=== PATIENT | female | born 1940 | race Caucasian/White ===

== ENCOUNTER 2019-06-12 14:47 | Inpatient (IN) | payer MEDICARE, OTHER ==
--- NOTE | 2019-06-12 15:49 | ED ---
Neurological HPI - HPI Summary HPI Summary: This patient is a 79 year old F [facility] by daughter with a chief complaint of falling down since couple days ago. Pt fell four times yesterdays. Patient reports dizziness and stumbling. Pt has not had any change in medication. Pt has no PMHx of a fib. Pt has PMHx of lymphedema, lung and breast cancer. Pt reports currently feeling okay. - History of Current Complaint Chief Complaint: EDFall Stated Complaint: ALC / FALLS PER EMS Time Seen by Provider: 06/12/19 14:58 Hx Obtained From: Patient Onset/Duration: Started days ago, Resolved Timing: Intermittent Episodes Lasting: Onset Severity: Moderate Current Severity: Moderate Pain Intensity: 6 Pain Scale Used: 0-10 Numeric Character: Room Spinning, Dizzy, Impaired Speech Aggravating: Nothing Alleviating: Nothing Associated Signs and Symptoms: Positive: Unsteady Gait, Dizziness, Impaired Speech - Allergy/Home Medications Allergies/Adverse Reactions: Allergies Allergy/AdvReac Type Severity Reaction Status Date / Time No Known Allergies Allergy Verified 06/12/19 15:03 Home Medications: Home Medications Oxycodone HCl [Roxicodone] 15 mg PO QID 06/12/19 [History Confirmed 06/12/19] Venlafaxine CAP (NF) [Effexor CAP (NF)] 75 mg PO DAILY 06/12/19 [History Confirmed 06/12/19] PMH/Surg Hx/FS Hx/Imm Hx Cardiovascular History: Reports: Hx Myocardial Infarction Respiratory History: Reports: Hx Lung Cancer Musculoskeletal History: Reports: Hx Back Problems Sensory History: Denies: Hx Deafness - Cancer History Cancer Type, Location and Year: Lung Cancer, Breast Cancer - Surgical History Surgery Procedure, Year, and Place: Lymphadenectomy Infectious Disease History: No Infectious Disease History: Denies: Traveled Outside the [place] in Last 30 Days - Family History Known Family History: Negative: Other - FHx of [place] - Social History Alcohol Use: Rare Substance Use Type: Reports: None Hx Tobacco Use: Yes Smoking Status (MU): Former Smoker Review of Systems Negative: Fever Positive: Other - tachycardic Neurological: Other - pos - dizziness, impaired gait Positive: Slurred Speech All Other Systems Reviewed And Are Negative: Yes Physical Exam - Summary Physical Exam Summary: Appearance: The patient is well-nourished in no acute distress and in no acute pain. Skin: The skin is warm and dry, and skin color reflects adequate perfusion. HEENT: The head is normocephalic and atraumatic. The pupils are equal and reactive. The conjunctivae are clear and without drainage. Nares are patent and without drainage. Mouth reveals moist mucous membranes, and the throat is without erythema and exudate. The external ears are intact. The ear canals are patent and without drainage. The tympanic membranes are intact. Neck: The neck is supple with full range of motion and non-tender. There are no carotid bruits. There is no neck vein distension. Respiratory: Chest is non-tender. Lungs are clear to auscultation and breath sounds are symmetrical and equal. Cardiovascular:There is no murmur or rub auscultated. There is no peripheral edema and pulses are symmetrical and equal. Tachycardic and irregularly irregular. Abdomen: The abdomen is soft and non-tender. There are normal bowel sounds heard in all four quadrants and there is no organomegaly palpated. Musculoskeletal: There is no back tenderness noted. Extremities are non-tender with full range of motion. There is good capillary refill. There is no peripheral edema or calf tenderness elicited. Neurological: Patient is alert and oriented to person, place and time. The patient has symmetrical motor strength in all four extremities. Cranial nerves are grossly intact. Deep tendon reflexes are symmetrical and equal in all four extremities. Psychiatric: The patient has an appropriate affect and does not exhibit any anxiety or depression. Triage Information Reviewed: Yes Vital Signs On Initial Exam: Initial Vitals Temp Pulse Resp BP Pulse Ox 98.2 F 109 16 119/87 99 06/12/19 14:50 06/12/19 14:50 06/12/19 14:50 06/12/19 14:50 06/12/19 14:50 Vital Signs Reviewed: Yes Diagnostics - Vital Signs Vital Signs Temp Pulse Resp BP Pulse Ox 06/12/19 14:50 98.2 F 109 16 119/87 99 - Laboratory Result Diagrams: 06/13/19 06:07 06/13/19 06:07 Lab Statement: Any lab studies that have been ordered have been reviewed, and results considered in the medical decision making process. - EKG 15:49 EKG Rhythm: Atrial Fibrillation Summary of EKG Findings: An EKG at 15:49 reveals atrial fibrillation 118 bpm, with IVR. Re-Evaluation - Re-Evaluation First Eval Re-Evaluation Time: 18:39 Comment: Discussed plan of care Course/Dx - Course Course Of Treatment: Ms. Cali presented with a complaint of falling down frequently over the last several days. On arrival she was noted to be in atrial fibrillation with RVR. She was kept on the monitor while labs were obtained. She had no focal finding on her neuro exam. I consulted Dr. Ortega for the new onset atrial fibrillation and she requested that I try to slow her with a beta ko and see if she was still dizzy. 2 doses of metoprolol kept her rate below 100 and we ambulated her at that time. She was very unsteady on her feet and I consult to the hospitalist again. Dr. Bhagat agreed to evaluate the patient. - Diagnoses Provider Diagnoses: Atrial fibrillation with RVR - Physician Notifications Discussed Care Of Patient With: Valentin Bhagat Time Discussed With Above Provider: 18:51 Instructed by Provider To: Other - Discussed case with Dr. Bhagat, who accepts pt for admission - Critical Care Time Critical Care Time: 30-74 min Discharge ED - Sign-Out/Discharge Documenting (check all that apply): Patient Departure - Admit Patient Received Moderate/Deep Sedation with Procedure: No - Discharge Plan Condition: Stable Disposition: ADMITTED TO [facility] - Billing Disposition and Condition Condition: STABLE Disposition: Admitted to [facility] - Attestation Statements Document Initiated by Larissa: Yes Documenting Scribe: Gely Nascimento Provider For Whom Larissa is Documenting (Include Credential): Jaison Garcia MD Scribe Attestation: Gely Summers, scribed for Jaison Garcia MD on 06/13/19 at 0740. Scribe Documentation Reviewed: Yes Provider Attestation: The documentation as recorded by the Gely hernandez accurately reflects the service I personally performed and the decisions made by me, Jaison Garcia MD Status of Scribe Document: Viewed
[2019-06-12] MEDS ORDERED: Metoprolol Tartrate IV* 1 MG/ML 5 ML VIAL IV ONE ×2 (16:22→17:43)
[2019-06-12 16:30] LABS: ABS Lymphocytes 1.1 10^3/ul (1.0-4.8); ABS Monocytes 0.9 10^3/ul (0-0.8); ABS Neutrophils 10.3 10^3/ul (1.5-7.7); Eosinophil % 0.2 %; Hematocrit 41 % (35-47); Hemoglobin 13.9 g/dL (12.0-16.0); Lymphocyte % 8.6 %; Mean Corpuscular HGB Conc 34 g/dL (31-36); Mean Corpuscular Hemoglobin 31 pg (27-31); Mean Corpuscular Volume 92 fL (80-97); Mean Platelet Volume 7.9 fL (7.4-10.4); Nucleated Red Blood Cells % 0.1; Platelet Count 245 10^3/uL (150-450); Red Blood Count 4.44 10^6 /uL (3.70-4.87); Red Cell Distribution Width 14 % (10-15); White Blood Count 12.3 10^3/uL (3.5-10.8)
[2019-06-12 16:37] LABS: INR 1.2 (0.82-1.09)
[2019-06-12 16:57] LABS: Anion Gap 11 mmol/L (2-11); CO2 Carbon Dioxide 27 mmol/L (22-32); Calcium 8.9 mg/dL (8.6-10.3); Chloride 102 mmol/L (101-111); Magnesium 1.5 mg/dL (1.9-2.7); Sodium 140 mmol/L (135-145)
[2019-06-12 17:02] LABS: Urine Appearance Cloudy; Urine Bacteria Absent (Absent); Urine Bilirubin Negative (Negative); Urine Blood 1+ (Negative); Urine Color Yellow; Urine Glucose Negative (Negative); Urine Ketones Negative (Negative); Urine Nitrite Negative (Negative); Urine Protein Negative (Negative); Urine Red Blood Cell Trace(0-2/hpf) (Absent); Urine Specific Gravity 1.005 (1.010-1.030); Urine Squamous Epithelial Cell Present (Absent); Urine Urobilinogen Negative (Negative); Urine White Blood Cell Trace(0-5/hpf) (Absent)
[2019-06-12 17:03] LABS: ALT 7 U/L (7-52); AST 16 U/L (13-39); Albumin/Globulin Ratio 1.5 (1-3); Alkaline Phosphatase 88 U/L (34-104); BUN/Creatinine Ratio 7.2 (8-20); Blood Urea Nitrogen 5 mg/dL (6-24); EGFR African American 99.3 (>60); EGFR Non-African American 82.1 (>60); Globulin 2.7 g/dL (2-4); Glucose 95 mg/dL (70-100); Total Protein 6.7 g/dL (6.4-8.9); Troponin I 0.01 ng/mL (<0.04)
[2019-06-12] MEDS ORDERED: Magnesium Sulfate 1 GM IV* 1 GM/100 ML BAG IV ONE (18:58)
[2019-06-12] MEDS: Potassium Chlor TAB* 20 MEQ TAB.ER PO SCH ×2 (19:35→20:59)
[2019-06-12 21:47] LABS: Alcohol < 10 mg/dL (<10)
--- NOTE | 2019-06-12 22:57 | ADMNOTE ---
Subjective Date of Service: 06/12/19 Interval History: 79 year old female with medical history of chronic back pain and osteoporosis was brought in by EMS for frequent falls, ataxic gait and altered mental status. Pt recently moved from [facility] 1 month ago and has been living with her daughter. Symptoms started 48 hrs prior to presenting to the ER. Spoke with daughter who says that patient has had slurred speech, difficulty with ambulating, wobbling, holding onto garza. She suffered multiple falls as a result. Her mentation has also been off. At baseline, she is sharp, self sufficient and able to ambulate on her own. In the ED, EKG showed A fib, no previous hx. Pt denies any symptoms related to A -fib. She is not able to offer same history as daughter. Continuously ataxic, not able to walk 1 step without falling. Review of Systems - Measurements Intake and Output: Intake and Output Last 24 Hours 06/10/19 06/11/19 06/12/19 06/13/19 06:59 06:59 06:59 06:59 Intake Total 100 Balance 100 Weight 135 lb Intake: IV Fluids 100 - Review of Systems Constitutional Symptoms: Negative: Weight Gain, Weight Loss, Weakness, Fatigue, Fever, Night Sweats, Unexplained Falls, Other Dermatology: Negative: Normal, Rash, Skin Lesions, Cancer, Skin Lumps, Other HEENT: Negative: Normal, Change in Hearing, Vertigo, Dental Problems, Tinnitus, Sinus Problem, Other Eyes: Negative: Normal, Change in Vision, Double Vision, Eye Pain, Glaucoma, Cataract, Contacts or Glasses, Other Thyroid: Positive: Normal Pulmonary: Positive: Normal Negative: Cough, Sputum, Hemoptysis, Wheezing, Respiratory Distress, Shortness of Breath, COPD, Asthma, Exercise Intolerance, Home Oxygen, Other Cardiology: Positive: Normal Negative: Chest Pain, Shortness of Breath, Palpitations, Swelling of Ankles, Peripheral Vascular Dis, Edema, Faintness, Syncope, Claudication, Proximal NocturnalDyspnea, Orthopnoea, Other Gastroenterology: Positive: Normal Negative: Abdominal Pain, Nausea, Vomiting, Anorexia, Indigestion, Difficulty Swallowing, Heartburn, Constipation, Diarrhea, Blood in Stools, Change in Bowel Habits, Haematemesis, Melena, Other Genital - Urinary: Positive: Normal Genitourinay - Female: Positive: Menopause Musculoskeletal: Positive: Osteoporosis, Low Back Pain Endocrinology: Positive: Normal Neurology: Positive: Change in Balancing, Change in Coordination, Change in Walking Psychiatry: Positive: Normal Objective Active Medications: Cyanocobalamin (Vitamin B12 Tab*) 500 mcg PO DAILY [facility] Docusate Sodium (Colace Cap*) 100 mg PO BID [facility] Heparin Sodium (Porcine) (Heparin Vial(*)) 5,000 units SUBCUT Q8HR [facility] Oxycodone HCl (Roxycodone Tab*) 15 mg PO QID [facility] Potassium Chloride (Klor Con Er Tab*) 20 meq PO Q2H [facility] Stop: 06/12/19 23:59 Last Admin: 06/12/19 20:59 Dose: 20 meq Thiamine HCl (Vitamin B-1 Tab*) 100 mg PO DAILY [facility] Venlafaxine HCl (Effexor Cap (Nf)) 75 mg PO DAILY [facility]; Protocol Vital Signs - 8 hr 06/12/19 06/12/19 06/12/19 14:50 15:11 15:13 Temperature 98.2 F Pulse Rate 109 133 135 Respiratory 16 20 17 Rate Blood Pressure 119/87 98/76 (mmHg) O2 Sat by Pulse 99 96 94 Oximetry 06/12/19 06/12/19 06/12/19 15:15 15:42 16:00 Temperature Pulse Rate 127 127 111 Respiratory 24 19 14 Rate Blood Pressure 117/89 111/94 (mmHg) O2 Sat by Pulse 85 91 96 Oximetry 06/12/19 06/12/19 06/12/19 16:44 16:46 17:00 Temperature Pulse Rate Respiratory 24 17 16 Rate Blood Pressure 138/101 115/86 (mmHg) O2 Sat by Pulse Oximetry 06/12/19 06/12/19 06/12/19 17:12 17:42 18:00 Temperature Pulse Rate 110 Respiratory 24 20 13 Rate Blood Pressure 117/79 125/71 (mmHg) O2 Sat by Pulse 88 Oximetry 06/12/19 06/12/19 18:12 18:49 Temperature Pulse Rate 102 Respiratory 18 19 Rate Blood Pressure 117/43 122/79 (mmHg) O2 Sat by Pulse 87 Oximetry Oxygen Devices in Use Now: None Eyes: No Scleral Icterus, PERRLA Neck: NL Appearance and Movements; NL JVP Respiratory: Symmetrical Chest Expansion and Respiratory Effort, Clear to Auscultation, Clear to Percussion Cardiovascular: NL Sounds; No Murmurs; No JVD Abdominal: NL Sounds; No Tenderness; No Distention Lymphatic: No Cervical Adenopathy Skin: No Rash or Ulcers Neurological: Alert and Oriented x 3, NL Muscle Strength and Tone, - - ataxia Nutrition: Taking PO's Result Diagrams: 06/13/19 06:07 06/12/19 16:20 Assess/Plan/Problems-Billing Assessment: - Patient Problems (1) Ataxia Current Visit: Yes Status: Acute Onset Date: ~06/10/19 Code(s): R27.0 - ATAXIA, UNSPECIFIED SNOMED Code(s): 17571107 Comment: new onset ataxia. At baseline, she is able to ambulate on her own. Now needs assist to stand CT head with no obvious evidence of bleed, waiting for official read. Needs MRI for more information if CT is negative. neg EtOH. Starting her on thiamine and B12 lipid panel pending, echo pending, hemogoblin A1C pending (2) Atrial fibrillation Current Visit: Yes Status: Acute Code(s): I48.91 - UNSPECIFIED ATRIAL FIBRILLATION SNOMED Code(s): 07316367 Comment: unknown onset. Rates have been 100-120s. Received metoprolol in the ED. she is at high risk for stroke. Still not sure if she actually suffered a posterior stroke or not. I think she needs to be ruled out before starting on AC. starting metoprolol 25 mg BID for rate control (3) Altered mental status Current Visit: Yes Status: Acute Onset Date: 06/10/19 Code(s): R41.82 - ALTERED MENTAL STATUS, UNSPECIFIED SNOMED Code(s): 724479121 Comment: "odd" behavior reported by family, possible hallucinations with confusion. She is a chronic opioid user but family reported no drowsiness. She is very alert but "off". Patient was alert and oriented x 4 by the time i examined her. (4) Chronic back pain Current Visit: Yes Status: Chronic Code(s): M54.9 - DORSALGIA, UNSPECIFIED; G89.29 - OTHER CHRONIC PAIN SNOMED Code(s): 158433021 Comment: family reported hx of osteoporosis and chronic fractures for which she takes oxycontin 15 mg 4x daily and has been for many years. (5) Osteoporosis Current Visit: Yes Status: Chronic Code(s): M81.0 - AGE-RELATED OSTEOPOROSIS W/O CURRENT PATHOLOGICAL FRACTURE SNOMED Code(s): 08370276 Comment: not on any treatment takes opiates and effexor for pain control (6) History of myocardial infarction Current Visit: Yes Status: Chronic Code(s): I25.2 - OLD MYOCARDIAL INFARCTION SNOMED Code(s): 466619532 Comment: not on any medications at home Does not have a PCP yet as she recently moved from [place].
[2019-06-13] MEDS: Heparin VIAL(*) 5000 UNITS/ML VIAL (FIVE THOUSAND) SUBCUT SCH ×4 (00:16→20:49)
[2019-06-13] MEDS: Potassium Chlor TAB* 20 MEQ TAB.ER PO SCH (00:17)
[2019-06-13] MEDS: oxyCODONE TAB* 5 MG TAB PO SCH ×3 (00:22→14:58)
[2019-06-13 06:18] LABS: ABS Basophils 0.1 10^3/ul (0-0.2); ABS Monocytes 0.8 10^3/ul (0-0.8); ABS Neutrophils 8.7 10^3/ul (1.5-7.7); Eosinophil % 0.3 %; Hematocrit 38 % (35-47); Hemoglobin 13.2 g/dL (12.0-16.0); Lymphocyte % 9.6 %; Mean Corpuscular HGB Conc 34 g/dL (31-36); Mean Corpuscular Hemoglobin 32 pg (27-31); Mean Corpuscular Volume 93 fL (80-97); Mean Platelet Volume 8.2 fL (7.4-10.4); Platelet Count 212 10^3/uL (150-450); Red Blood Count 4.13 10^6 /uL (3.70-4.87); Red Cell Distribution Width 14 % (10-15); White Blood Count 10.6 10^3/uL (3.5-10.8)
[2019-06-13 06:39] LABS: Albumin 3.9 g/dL (3.2-5.2); Albumin/Globulin Ratio 1.4 (1-3); BUN/Creatinine Ratio 12.5 (8-20); Calcium 8.9 mg/dL (8.6-10.3); EGFR African American 126.4 (>60); EGFR Non-African American 104.4 (>60); Globulin 2.8 g/dL (2-4); HDL Cholesterol 58.6 mg/dL; Potassium 3.5 mmol/L (3.5-5.0); Total Protein 6.7 g/dL (6.4-8.9)
[2019-06-13] MEDS: Docusate CAP* 100 MG PO SCH ×2 (08:57→20:43)
[2019-06-13] MEDS: Cyanocobalamin TAB* 500 MCG PO SCH (08:57)
[2019-06-13] MEDS: Metoprolol Tartrate TAB* 25 MG PO SCH ×2 (08:57→20:43)
[2019-06-13] MEDS: Thiamine TAB* 100 MG TAB PO SCH (08:57)
[2019-06-13] MEDS: CMCS: Venlafaxine TAB (NF) 25 MG TAB PO SCH (08:58)
[2019-06-13 11:17] LABS: Magnesium 1.8 mg/dL (1.9-2.7)
--- NOTE | 2019-06-13 11:53 | ECHO ---
*[facility]* [place] [address] Fax #: [phone] Transthoracic Echocardiogram Patient: Ligia Cali : 1940 Study Date: 06/13/2019 Age: 79 Gender: F HR: 117 bpm Height: 63 in /160 cm BSA: 1.56 m^2 Weight: 119.8 lb /54.4 kg BMI: 21.3 kg/m^2 *Notereader: * Tyra Mckeon [facility] *Referring Physician: * Sugey Ibarra *Reading Physician: * Lamont Hull MD Indications: Atrial Fibrillation. History: PMH: Myocardial infarction. Lymphedema. Breast Cancer. Lung Cancer. Risk factors: Former tobacco use. Conclusions Summary: - Left ventricle: Systolic function is at the lower limits of normal. The estimated ejection fraction is 50-55%. Wall motion is normal; there are no regional wall motion abnormalities. - Right ventricle: Systolic function is normal. Systolic pressure is mildly to moderately increased. - Left atrium: The atrium is severely dilated. - Mitral valve: The findings are consistent with mild stenosis. There is moderate regurgitation. - Aortic valve: There is no evidence of stenosis. There is trace regurgitation. - Tricuspid valve: There is moderate regurgitation. - Ascending aorta: The ascending aorta is appears normal. - Pericardium, extracardiac: The amount of pericardial fluid appears to be at the upper limits of normal. - Study data: No prior study is available for comparison. Study data: Transthoracic echocardiogram. Procedure: Transthoracic echocardiography was performed. Image quality was good. Complete 2D, spectral Doppler, and color flow Doppler. Location: Bedside. Patient status: Inpatient. Patient room number: 448-2. No prior study is available for comparison. Rhythm: Atrial fibrillation. Findings Left ventricle: The cavity size is below normal. Wall thickness is normal. Systolic function is at the lower limits of normal. The estimated ejection fraction is 50-55%. Wall motion is normal; there are no regional wall motion abnormalities. Left ventricular diastolic function parameters are indeterminate. Right ventricle: The cavity size is normal. Wall thickness is mildly increased. Systolic function is normal. Systolic pressure is mildly to moderately increased. Left atrium: The atrium is severely dilated. Right atrium: The atrium is moderately to severely dilated. Mitral valve: The Mitral valve annulus appears mildly calcified. The findings are consistent with mild stenosis. There is moderate regurgitation. Aortic valve: The valve is trileaflet. The leaflets are mildly thickened. There is no evidence of stenosis. There is trace regurgitation. Tricuspid valve: The leaflets are normal thickness. There is no evidence of stenosis. There is moderate regurgitation. Pulmonic valve: The leaflets are normal thickness. There is no evidence of stenosis. There is trace regurgitation. Aorta: Ascending aorta: The ascending aorta is appears normal. The aortic root appears normal. The aortic arch appears normal. Pericardium: The amount of pericardial fluid appears to be at the upper limits of normal. Pulmonary arteries: The main pulmonary artery is normal-sized. Systolic pressure is mildly to moderately increased. Systemic veins: Inferior vena cava: The vessel is normal in size. There is (>= 50%) respiratory change in the IVC dimension. Measurements Left ventricle Value Ref Aortic valve continued Value Ref WAYNE, LAX (L) 3.5 cm 3.8 - 5.2 VTI, S 19.6 cm ----- ESD, LAX 2.4 cm 2.2 - 3.5 Mean grad, S 3.0 mm Hg ----- FS, LAX 31 % - 45 Peak grad, S 5.0 mm Hg ----- PW, ED, LAX 0.9 cm 0.6 - 0.9 LVOT/AV, VTI ratio 0.51 ----- FS 31 % - 45 PW, ED 0.9 cm 0.6 - 0.9 Mitral valve Value Ref E', lat tatyana, TDI (L) 8.6 cm/sec >=10.0 Peak E 1.02 m/sec - ---- E/e', lat tatyana, 12 Peak A 0 m/sec ---- - TDI Decel time 152 ms ----- E', med tatyana, TDI 8.5 cm/sec >=7.0 Peak grad, D 4.2 mm Hg - ---- E/e', med tatyana, 12 MR PISA radius 0.5 cm ---- - TDI Max MR v 5.37 m/sec ----- E', avg, TDI 8.6 cm/sec Regurg VTI 136.0 cm ---- - E/e', avg, TDI 12 <=14 ERO, PISA 0.09 cm^2 - ---- MR vol, PISA 13 ml ----- LVOT Value Ref Peak arelis, S 0.55 m/sec Pulmonic valve Value Ref VTI, S 10.0 cm Peak v, S 0.97 m/sec ----- Mean grad, S 1 mm Hg Peak grad, S 4.0 mm Hg ----- PA v, ED 1.44 m/sec ----- Ventricular septum Value Ref PA grad, ED 8 mm Hg ----- IVS, ED 0.9 cm 0.6 - 0.9 Tricuspid valve Value Ref Right ventricle Value Ref TR peak v (H) 3.1 m/sec <=2.8 AW thickness, ED (H) 0.7 cm 0.1 - 0.5 Peak RV-RA grad, S 38 mm Hg ----- WAYNE, LAX 2.7 cm WAYNE minor ax, A4C 3.3 cm 1.9 - 3.5 Aortic root Value Ref mid Root diam 2.8 cm <3.8 Pressure, S 41 mm Hg Ascending aorta Value Ref Left atrium Value Ref AAo AP diam, S 3.0 cm ----- AP dim, ES (H) 4.40 cm 2.70 - 3.80 Aortic arch Value Ref ML dim, A4C 4.4 cm Arch diam 2.2 cm ----- SI dim, A4C 6.0 cm Vol/bsa, ES, 1-p (H) 48 ml/m^2 11 - 40 Decending aorta Value Ref A4C Rio peak arelis 0.56 m/sec ----- Vol/bsa, ES, A/L (H) 59 ml/m^2 16 - 34 Pulmonary artery Value Ref Right atrium Value Ref Pressure, S 37.0 mm Hg ----- SI dim, ES (H) 6.1 cm 3.4 - 5.3 ML dim, ES, A4C 4.3 cm 2.6 - 4.4 Inferior vena cava Value Ref SI dim, ES, A4C (H) 6.1 cm 3.4 - 5.3 Diam 2.0 cm ----- Estimated RAP 3 mm Hg Aortic valve Value Ref Tatyana diam, ED 1.5 cm Peak v, S 1.14 m/sec Legend: (L) and (H) vijay values outside specified reference range. Prepared and electronically signed by Lamont Hull MD 06/13/2019 11:53
[2019-06-13] MEDS ORDERED: Magnesium Sulfate 1 GM IV* 1 GM/100 ML BAG IV ONE (12:37)
--- NOTE | 2019-06-13 14:19 | PN ---
Subjective Date of Service: 06/13/19 Interval History: Patient seen and examined. Patient states she is feeling much better than at admission, however, she is becoming sleepy during exam and requires frequent reminders to stay awake for assessment and discussion. She rates her back pain as 4/10 but denies any other acute complaints. She has not ambulated. Denies dizziness, no SOB, no chest pain, no fevers or chills. Objective Active Medications: Cyanocobalamin (Vitamin B12 Tab*) 500 mcg PO DAILY [facility] Last Admin: 06/13/19 08:57 Dose: 500 mcg Docusate Sodium (Colace Cap*) 100 mg PO BID [facility] Last Admin: 06/13/19 08:57 Dose: 100 mg Heparin Sodium (Porcine) (Heparin Vial(*)) 5,000 units SUBCUT Q8HR [facility] Last Admin: 06/13/19 06:06 Dose: 5,000 units Metoprolol Tartrate (Lopressor Tab*) 25 mg PO BID [facility] Last Admin: 06/13/19 08:57 Dose: 25 mg Oxycodone HCl (Roxycodone Tab*) 10 mg PO Q6HR [facility] Thiamine HCl (Vitamin B-1 Tab*) 100 mg PO DAILY [facility] Last Admin: 06/13/19 08:57 Dose: 100 mg Venlafaxine HCl (Effexor Tab (Nf)) 75 mg PO DAILY [facility]; Protocol Last Admin: 06/13/19 08:58 Dose: 75 mg Vital Signs - 8 hr 06/13/19 06/13/19 06/13/19 07:32 08:00 08:57 Temperature 97.9 F Pulse Rate 102 Respiratory 20 20 16 Rate Blood Pressure 124/69 (mmHg) O2 Sat by Pulse 97 Oximetry 06/13/19 06/13/19 11:44 12:34 Temperature 98.1 F Pulse Rate 94 Respiratory 20 20 Rate Blood Pressure 109/61 (mmHg) O2 Sat by Pulse 92 Oximetry Oxygen Devices in Use Now: None Appearance: drowsy, NAD Eyes: No Scleral Icterus, PERRLA Ears/Nose/Mouth/Throat: Mucous Membranes Moist Neck: NL Appearance and Movements; NL JVP, Trachea Midline Respiratory: Symmetrical Chest Expansion and Respiratory Effort, Clear to Auscultation Cardiovascular: NL Sounds; No Murmurs; No JVD, RRR Abdominal: NL Sounds; No Tenderness; No Distention Skin: No Rash or Ulcers Neurological: - - A&Ox3, appears drowsy Nutrition: Taking PO's Result Diagrams: 06/13/19 06:07 06/13/19 06:07 Diagnostic Imaging: Patient Name: GIANNA PONCE Medical Record#: [id number] Ordering Physician: Marta Pace ROD BUSTER Acct.#: [id number] : 1940 Age: 79 Sex: F Location: [address] [place], [place] [address] Exam Date: 06/13/19 1024 ADM Status: ADM IN Order Information: CT SPINE THORACIC W/O Accession Number: [id number] CPT: 30534 Indication: Back pain after fall CT of the thoracic spine was obtained in the axial plane. There is compression of the T9 vertebra. There is compression of T11, T12 and L1 with methacrylate in place likely representing chronic compression. Spinal canal is intact. Diffuse osteopenia is noted. At T9 there is no evidence of paravertebral soft tissue. IMPRESSION: Osteopenia is noted. At T9 there is decrease in height without evidence of edema likely representing chronic compression. Chronic compression is noted at T11, T12 and L1 with methacrylate kyphoplasty performed. Patient Name: GIANNA PONCE Medical Record#: [id number] Ordering Physician: Marta Pace ROD BUSTER Acct.#: [id number] : 1940 Age: 79 Sex: F Location: [address] [place], [place] [address] Exam Date: 06/13/19 1024 ADM Status: ADM IN Order Information: CT SPINE LUMBAR W/O Accession Number: [id number] CPT: 78660 Indication: Fall. CT of the lumbar spine was obtained in the axial plane. Sagittal and coronal reconstructed images were obtained The vertebral bodies appear normal in height. There is compression fracture of L1 and T12 with methacrylate presumably from prior compression. There is postoperative changes with laminectomy at L4. Multiple levels of degenerative disc disease. The sacrum and sacroiliac joints are unremarkable. IMPRESSION: Laminectomy at L4. No recent compression fracture impression L1 and T12. Patient Name: GIANNA PONCE Medical Record#: [id number] Ordering Physician: Sugey Ibarra MD Acct.#: [id number] : 1940 Age: 79 Sex: F Location: EMERGENCY DEPARTMENT Exam Date: 06/12/192050 ADM Status: REG ER Order Information: CT BRAIN WO Accession Number: [id number] CPT: 97464 EXAM: CT Head Without Contrast EXAM DATE/TIME: 06/12/2019 9:12 PM CLINICAL HISTORY: 79 years old, female; Other: Stroke like symptoms; Additional info: Rule out stroke TECHNIQUE: Imaging protocol: Computed tomography of the head without contrast. Radiation optimization: All CT scans at this facility use at least one of these dose optimization techniques: automated exposure control; mA and/or kV adjustment per patient size (includes targeted exams where dose is matched to clinical indication); or iterative reconstruction. COMPARISON: No relevant prior studies available. FINDINGS: Brain: There is minimal patchy low attenuation of deep white matter. Upper normal sulci. Ventricles: Upper normal ventricles. Bones/joints: Degenerative changes of the TMJs. Sinuses: Visualized sinuses are unremarkable. No fluid levels. Mastoid air cells: Visualized mastoid air cells are well aerated. Soft tissues: Unremarkable. IMPRESSION: 1. Minimal chronic ischemic white matter change. 2. Otherwise negative noncontrast head CT. To contact [facility] with a general question: Operations Center - [phone] For direct physician to physician contact: Physician Hotline - [phone] [facility] ([facility] Facility ID #[id number]) Assess/Plan/Problems-Billing Assessment: This is a 79 year old female with history of HTN, and compression fxs/chronic pain that presented to the ED with complaints of confusion and ataxia. - Patient Problems (1) Altered mental status Code(s): R41.82 - ALTERED MENTAL STATUS, UNSPECIFIED SNOMED Code(s): 932838720 Comment: - Brain CT negative as above - Narcotics held last night and this AM, per RN, patient was very alert this morning, and now is very drowsy after having oxycodone dose - Suspect polypharmacy, given advanced age, do not think the amount of narcotic she is on is appropriate at this time - [place] prescription monitoring program checked, patient is prescribed 120 tablets of 15mg oxycodone every 30 days and appears to be taking them as prescribed. No prescriptions in [place] filled. - Decrease oxycodone to 10mg Q6h while awake only, judging by patient's somnolence this morning with 15mg dose, she does not appear to be tolerating her normal dose - Monitor for withdrawl, neuro checks Q6h (2) Ataxia Code(s): R27.0 - ATAXIA, UNSPECIFIED SNOMED Code(s): 69321705 Comment: - CT thoracic and lumbar without contrast as above, no new compression fractures/pathology noted - Does have kyphoplasty at T9, 10, 11 and chronic spinal disease and osteopenia - Currently neurologically intact with no myelopathy noted, suspect decreased cerebral perfusion in setting of new onset afib with RVR in combination with narcotics. - PT/OT evaluations pending - Follow labs, continue neuro checks - Patient is not exhibiting any symptoms of embolic event involving posterior circulation, no visual field cuts, no sensory loss, no visual-cognitive dysfunction, no unilateral weakness. Do not feel that patient's presentation is consistent with CVA. (3) Atrial fibrillation Code(s): I48.91 - UNSPECIFIED ATRIAL FIBRILLATION SNOMED Code(s): 64640651 Comment: - Appears to be new onset - BB started for rate control - CHADsVASc Score is 5 or high risk for stroke, given that patient is exhibiting no neurologic deficits to suggest stroke, and since patient's AMS improved being off narcotics, would suggest starting eliquis tonight for persistent afib for stroke prevention (4) Chronic back pain SNOMED Code(s): 529667923 Comment: - Patient states history of spinal disease and compression fx since 2011 - CTs as above, no new fractures - Highly recommend decreasing narcotics and monitor for withdrawl symptoms, continue effexor - PT/OT (5) History of myocardial infarction Code(s): I25.2 - OLD MYOCARDIAL INFARCTION SNOMED Code(s): 523371648 Comment: - ECHO as above - No chest pain (6) DVT prophylaxis Code(s): Z29.9 - ENCOUNTER FOR PROPHYLACTIC MEASURES, UNSPECIFIED SNOMED Code( s): 010077002 Comment: - Currently on heparin, transition to eliquis (7) Full code status Code(s): Z78.9 - OTHER SPECIFIED HEALTH STATUS SNOMED Code(s): 538946453 Status and Disposition: Inpatient, dispo to home when stable
[2019-06-13] MEDS ORDERED: Iohexol 350* (CONTRAST) 500 ML MDV IV ONE (16:06)
[2019-06-14] MEDS: Acetaminophen TAB* 325 MG PO PRN ×2 (00:48→21:45)
[2019-06-14] MEDS: oxyCODONE TAB* 5 MG TAB PO SCH ×5 (01:29→17:28)
[2019-06-14] MEDS: Heparin VIAL(*) 5000 UNITS/ML VIAL (FIVE THOUSAND) SUBCUT SCH (06:54)
[2019-06-14] MEDS: Thiamine TAB* 100 MG TAB PO SCH (08:55)
[2019-06-14] MEDS: CMCS: Venlafaxine TAB (NF) 25 MG TAB PO SCH (08:55)
[2019-06-14] MEDS: Docusate CAP* 100 MG PO SCH ×2 (08:58→21:44)
[2019-06-14] MEDS: Cyanocobalamin TAB* 500 MCG PO SCH (08:59)
[2019-06-14] MEDS: Metoprolol Tartrate TAB* 25 MG PO SCH ×2 (09:01→21:44)
[2019-06-14] MEDS: Apixaban* 5 MG TAB PO SCH ×2 (12:52→21:45)
--- NOTE | 2019-06-14 14:48 | PN ---
Subjective Date of Service: 06/14/19 Interval History: Ms. Cali is feeling "lousy but better" today. She is having frequent back pain which is her baseline. She is surprised to hear she may have taken too many narcotics. She does not want us to take away her pain medications. She does feel comfortable going back home. Denies CP, SOB, N/V. No concerns from nursing. Family History: Unchanged from Admission Social History: Unchanged from Admission Past Medical History: Unchanged from Admission Objective Active Medications: Acetaminophen (Tylenol Tab*) 650 mg PO Q6H PRN PAIN Apixaban (Eliquis*) 5 mg PO BID [facility] Cyanocobalamin (Vitamin B12 Tab*) 500 mcg PO DAILY [facility] Docusate Sodium (Colace Cap*) 100 mg PO BID [facility] Metoprolol Tartrate (Lopressor Tab*) 37.5 mg PO BID [facility] Oxycodone HCl (Roxycodone Tab*) 10 mg PO Q6HR [facility] Thiamine HCl (Vitamin B-1 Tab*) 100 mg PO DAILY [facility] Venlafaxine HCl (Effexor Tab (Nf)) 75 mg PO DAILY [facility]; Protocol Vital Signs - 8 hr 06/14/19 06/14/19 06/14/19 07:15 08:00 11:15 Temperature 97.5 F 97.9 F Pulse Rate 83 105 Respiratory 19 19 18 Rate Blood Pressure 119/58 113/54 (mmHg) O2 Sat by Pulse 100 95 Oximetry Oxygen Devices in Use Now: None Appearance: Elderly female laying in bed in NAD Eyes: No Scleral Icterus Ears/Nose/Mouth/Throat: Mucous Membranes Moist Neck: NL Appearance and Movements; NL JVP, Trachea Midline Respiratory: Symmetrical Chest Expansion and Respiratory Effort, Clear to Auscultation Cardiovascular: NL Sounds; No Murmurs; No JVD, - - Irregular Abdominal: NL Sounds; No Tenderness; No Distention Extremities: No Edema Neurological: Alert and Oriented x 3 Lines/Tubes/Other Access: Clean, Dry and Intact Peripheral IV Nutrition: Taking PO's Result Diagrams: 06/13/19 06:07 06/13/19 06:07 Assess/Plan/Problems-Billing Assessment: Ms. Cali is a 79 year old F with PMH of HTN, and compression fractures with chronic pain; that presented to the ED with complaints of confusion and ataxia and was found to have new onset afib. - Patient Problems (1) Altered mental status Code(s): R41.82 - ALTERED MENTAL STATUS, UNSPECIFIED Comment: - Resolved with decrease of narcotic dosing, so suspect this was all medication- induced - Brain CT negative as above - CTA head/neck unremarkable - [place] prescription monitoring program checked: patient is prescribed 120 tablets of 15mg oxycodone every 30 days and appears to be taking them as prescribed; no prescriptions in [place] filled - Given advanced age, do not think the amount of narcotic she has been on is appropriate - Monitor for withdrawl and neuro checks q6h - Continue oxycodone at decrease dose of 10mg q6h (2) Ataxia Code(s): R27.0 - ATAXIA, UNSPECIFIED Comment: - Currently neurologically intact with no myelopathy noted - CT thoracic and lumbar without contrast as above, no new compression fractures /pathology noted - Kyphoplasty noted at T9, 10, 11 and chronic spinal disease and osteopenia - Suspect decreased cerebral perfusion in setting of new onset afib with RVR in combination with narcotics; no evidence of CVA (3) Atrial fibrillation Code(s): I48.91 - UNSPECIFIED ATRIAL FIBRILLATION Comment: - New onset - Mostly rate controlled; tele shows HR 90-110s - CHADsVASc Score is 5 - Increase metoprolol; start Eliquis (4) Chronic back pain Code(s): M54.9 - DORSALGIA, UNSPECIFIED; G89.29 - OTHER CHRONIC PAIN Comment: - Patient states history of spinal disease and compression fx since 2011 - CT unremarkable for new fractures - Continue oxycodone at decreased dose as above (5) DVT prophylaxis Code(s): Z29.9 - ENCOUNTER FOR PROPHYLACTIC MEASURES, UNSPECIFIED Comment: - Eliquis (6) Full code status Code(s): Z78.9 - OTHER SPECIFIED HEALTH STATUS Comment: Status and Disposition: Inpatient. Anticipate d/c home tomorrow. Attending: Kecia Easley
[2019-06-15] MEDS: Acetaminophen TAB* 325 MG PO PRN (03:33)
[2019-06-15] MEDS: oxyCODONE TAB* 5 MG TAB PO SCH ×3 (05:50→11:16)
[2019-06-15] MEDS: Docusate CAP* 100 MG PO SCH (08:33)
[2019-06-15] MEDS: Metoprolol Tartrate TAB* 25 MG PO SCH (08:33)
[2019-06-15] MEDS: Cyanocobalamin TAB* 500 MCG PO SCH (08:33)
[2019-06-15] MEDS: Apixaban* 5 MG TAB PO SCH (08:33)
[2019-06-15] MEDS: Thiamine TAB* 100 MG TAB PO SCH (08:33)
[2019-06-15] MEDS: CMCS: Venlafaxine TAB (NF) 25 MG TAB PO SCH (08:33)
[2019-06-15 12:39] VITALS: BP 109/47
--- NOTE | 2019-06-15 20:30 | DS ---
CC: [facility]* DISCHARGE SUMMARY: DATE OF ADMISSION: 06/12/19 DATE OF DISCHARGE: 06/15/19 PRIMARY CARE PROVIDER: [facility]. ATTENDING PHYSICIAN: Dr. Kecia Easley* (dictated by Lyn Vergara NP). PRIMARY DIAGNOSES: 1. Altered mental status, likely unintentional narcotic overdose. 2. Ataxia. 3. New-onset atrial fibrillation. SECONDARY DIAGNOSES: 1. Chronic back pain. 2. Chronic compression fractures. STUDIES WHILE IN THE HOSPITAL: 1. EKG on 06/12/19 shows atrial fibrillation with rate of 118, QTc 481. No ST changes. 2. Chest x-ray on 06/12/19 reads as chronic interstitial lung disease. Right upper lobe atelectasis is noted with right apical scarring. 3. Brain CT on 06/12/19 reads as minimal chronic ischemic white matter change. Otherwise, negative noncontrast head CT. 4. Transthoracic echocardiogram on 06/13/19 reads as the left ventricular systolic function is at the lower limits of normal. The estimated ejection fraction is 50% to 55%. Wall motion is normal and there are no regional wall motion abnormalities. Right ventricular systolic function is normal. Systolic pressure is mildly to moderately increased. The left atrium is severely dilated. Findings are consistent with mild mitral stenosis. There is moderate mitral regurgitation. There is no evidence of aortic stenosis. There is trace aortic regurgitation. There is moderate tricuspid regurgitation. The ascending aorta appears normal. The amount of pericardial fluid appears to be at the upper limits of normal. No prior study available for comparison. 5. Lumbar spine CT on 06/13/19 reads as laminectomy at L4. No recent compression fracture. Compression at L1 and T12. 6. Thoracic spine CT on 06/13/19 reads as osteopenia. At T9, there is decrease in height without evidence of edema, likely representing chronic compression. Chronic compression is noted at T11, T12, and L1 with methacrylate kyphoplasty performed. 7. Head CTA on 06/13/19 reads as calcific plaque is noted at the origin of the internal carotid arteries bilateral and the aortic bifurcation. This appears to be less than 50% stenosis. No evidence of carotid artery dissection is noted. Intracranial circulation demonstrates no branch occlusion or aneurysmal dilation. Vertebral arteries and basilar artery appear fairly symmetric with no vertebral artery dissection. Posterior cerebral arteries are unremarkable. HISTORY OF PRESENT ILLNESS AND HOSPITAL COURSE: Ms. Cali is a 79-year-old female with past medical history of hypertension, compression fractures, and chronic pain secondary to prior breast cancer who presented to the emergency room on 06/12/19 with complaints of falls and gait ataxia. Please see the history and physical by Dr. Ibarra for complete summary of the events leading up to this hospitalization. In short, the patient moved to the area from [place] approximately 1 month ago. Approximately 2 days prior to presenting to the emergency room, she was noted to have increasingly worse altered mental status and gait ataxia. The daughter noted slurred speech and multiple falls as a result of her ataxia and so brought her to the emergency room. In the emergency room, the patient was noted to have new-onset atrial fibrillation and was noted to be ataxic. The patient was started on metoprolol for rate control and was admitted by the hospitalist service. Altered mental status gradually improved. Based on history of narcotic use and the decrease of narcotic administration while here in the hospital, it was suspected that the altered mental status was secondary to an unintentional narcotic overdose. It is unclear the amount of narcotics the patient was actually taking at home, though at that point this has resolved. Regarding her ataxia, the patient's ataxic gait has gradually improved and as of yesterday, , physical therapy noted that she remained slightly ataxic, but did not have any balance loss and was able to ambulate with a walker. It is suspected that the ataxia is possibly due to decreased cerebral perfusion in the setting of new-onset atrial fibrillation with rapid ventricular rate and the combination of excess narcotics. Regarding her atrial fibrillation, rate was successfully controlled with metoprolol. As of yesterday, 06/14/19, the patient 's heart rate was noted to be in the 90s, occasionally jumping into the low 100s on 25 mg of metoprolol tartrate b.i.d. I did increase the metoprolol tartrate to 50 mg b.i.d., though that did cause some soft blood pressures with systolics in the 90s, so I titrated that back down to 25 mg b.i.d. as she is not having any significant tachycardia on that dosing. The discharge plan for this patient has been difficult. The patient has been living with her daughter in anticipation of moving into her own home, which is not quite ready at this point. Today, case management spoke with the patient's daughter this morning, who was agreeable to taking the patient back home, though when the daughter came in later in the day, she was quite adamant that the patient was not safe to return home and that she did need rehab. We did explain to the patient's daughter that at this point, she has no physical or occupational therapy need for rehab, and case management and I were eventually able to get the daughter to agree to take the patient back home. Of note, the patient does have the capacity to make her own decisions and does want to return home with her daughter at this time. PHYSICAL EXAMINATION: On exam, the patient reports feeling well today. She has no complaints and is anxious to go home. She has no focal neurological deficit and is alert and oriented x4. Her heart has an irregular rhythm with a regular rate. There are no murmurs, rubs, or gallops. Lungs are clear to auscultation without rhonchi, wheezes, or rubs. There is no edema. Physical assessment is, otherwise, benign. DISCHARGE MEDICATIONS: New Medications: 1. Eliquis 5 mg p.o. b.i.d. 2. Atorvastatin 10 mg p.o. at bedtime. 3. Metoprolol tartrate 25 mg p.o. b.i.d. Changed Medications: 1. Oxycodone 10 mg p.o. q.6 hours (previously was 15 mg q.i.d.). Continued Medications: 1. Venlafaxine 75 mg p.o. daily. DISCHARGE PLAN: Ms. Cali will be discharged home with her daughter. Activity will be as tolerated. She should use a walker as instructed by physical therapy. Diet will be regular as tolerated. Medications are noted above. The patient has been started on Eliquis for anticoagulation, and she is understanding of the risks and benefits of anticoagulation and understands that there is significant danger if she does fall and sustain an injury such as hitting her head. She has been prescribed metoprolol for rate control for her atrial fibrillation. I did send in a prescription for low-dose atorvastatin and she was noted to have an LDL of 106 and due to her age, would certainly benefit from a statin at this time. Again, regarding her oxycodone, dosing has been decreased and the patient has been given significant teaching and instructions on appropriate use of narcotics. She will need to follow up with her primary care provider and does not have one in the area, so she has been referred to our [facility]. She can additionally follow up with a pick remover in the area after she has been seen by a primary care provider. The patient has been instructed to return to the emergency room or nearest hospital for any worsening symptoms, shortness of breath, lightheadedness, dizziness, chest discomfort, high fevers or chills, night sweats, loss of consciousness, or any other worrisome signs or symptoms. DISCHARGE CONDITION: Stable. DISCHARGE DISPOSITION: Home. This is a summarized report of a complex medical history and hospital stay. For further details, please see the entire medical record. TIME SPENT: Approximately 65 minutes were spent on this discharge. LYN VERGARA NP [id number]/[facility] #: [id number] JAYESH
[2019-06-15] MEDS ORDERED: Metoprolol Tartrate TAB* 25 MG PO SCH (21:00)
== END 2019-06-15 16:40 | disposition home health service (06) | DRG 918 ==
LOC: ED 14:47 → EEVIPCON 21:57 → MEDTELE 21:57
PROVIDERS: ADMIT Student in an Organized Health Care Education/Training Program; ATTEND Internal Medicine
DX: T40.601A Poisoning by unspecified narcotics, accidental (unintentional), initial encounter (principal); J98.11 Atelectasis; I48.91 Unspecified atrial fibrillation; I08.1 Rheumatic disorders of both mitral and tricuspid valves; R41.82 Altered mental status, unspecified; R26.0 Ataxic gait; M54.9 Dorsalgia, unspecified; M48.54XD Collapsed vertebra, not elsewhere classified, thoracic region, subsequent encounter for fracture with routine healing; M81.0 Age-related osteoporosis without current pathological fracture; M85.88 Other specified disorders of bone density and structure, other site; Y92.9 Unspecified place or not applicable; Z85.3 Personal history of malignant neoplasm of breast; Z91.81 History of falling; Z79.891 Long term (current) use of opiate analgesic; Z79.899 Other long term (current) drug therapy; I25.2 Old myocardial infarction
CPT/HCPCS: 36415; 70450; 70496; 70498; 71046; 72128; 72131; 80053; 80061; 80320; 81003; 81015; 83036; 83605; 83735; 83880; 84443; 84484; 85025; 85610; 87086; 93005; 93306; 99284; A9270-GY; G0480; G8978-GP-CJ; G8979-GP-CI; G8987-GO-CK; G8988-GO-CI; J1644; J3475; J3490; Q9967

== ENCOUNTER 2020-01-27 19:51 | Inpatient (IN) | payer MEDICARE, OTHER ==
[2020-01-27] MEDS ORDERED: Ondansetron 4 mg VIAL 2 MG/ML 2 ml VIAL IV ONE (20:53)
[2020-01-27] MEDS ORDERED: Morphine 4 MG/ML VIAL (1 ml) IV ONE (20:53)
[2020-01-27 20:58] LABS: ABS Eosinophils 0.1 10^3/ul (0-0.6); ABS Lymphocytes 0.8 10^3/ul (1.0-4.8); ABS Monocytes 0.9 10^3/ul (0-0.8); Eosinophil % 0.9 %; Hematocrit 37 % (35-47); Hemoglobin 12.4 g/dL (12.0-16.0); Lymphocyte % 6.9 %; Mean Corpuscular HGB Conc 34 g/dL (31-36); Mean Corpuscular Hemoglobin 31 pg (27-31); Mean Corpuscular Volume 92 fL (80-97); Mean Platelet Volume 6.9 fL (7.4-10.4); Platelet Count 369 10^3/uL (150-450); Red Blood Count 4.01 10^6 /uL (3.70-4.87); Red Cell Distribution Width 15 % (10-15); White Blood Count 12.2 10^3/uL (3.5-10.8)
[2020-01-27 21:17] LABS: ALT 10 U/L (7-52); AST 16 U/L (13-39); Albumin 3.7 g/dL (3.2-5.2); Albumin/Globulin Ratio 1.2 (1-3); Alkaline Phosphatase 110 U/L (34-104); Anion Gap 8 mmol/L (2-11); BUN/Creatinine Ratio 13.2 (8-20); Blood Urea Nitrogen 14 mg/dL (6-24); CO2 Carbon Dioxide 27 mmol/L (22-32); Calcium 8.6 mg/dL (8.6-10.3); Chloride 100 mmol/L (101-111); EGFR African American 60.5 (>60); Globulin 3.2 g/dL (2-4); Glucose 203 mg/dL (70-100); Magnesium 1.8 mg/dL (1.9-2.7); Potassium 3.3 mmol/L (3.5-5.0); Sodium 135 mmol/L (135-145); Total Protein 6.9 g/dL (6.4-8.9)
[2020-01-27 21:18] LABS: Troponin I 0.02 ng/mL (<0.03)
[2020-01-27 22:09] LABS: TSH (Thyroid Stimulating Horm) 4.68 mcIU/mL (0.34-5.60)
[2020-01-27] MEDS ORDERED: Propofol 10 MG/ML 20 ML BTL IV PUSH ONE (22:36)
[2020-01-27] MEDS ORDERED: ceFAZolin 1 GM ADVAN(*) 1 GM in NS 0.9% 50 ML 50 ML IVPB ONE (22:48)
[2020-01-27] MEDS ORDERED: NS 0.9% 1000 ml BAG 1,000 ML IV.FLUID IV ONE (23:19)
[2020-01-28] MEDS ORDERED: Ondansetron 4 mg VIAL 2 MG/ML 2 ml VIAL IV PRN (00:08)
[2020-01-28] MEDS ORDERED: Al Hydrox/Mg Hydrox/Simet LIQ 30 ML UDC PO PRN (00:08)
[2020-01-28] MEDS ORDERED: Potassium Chlor 20 meq TAB.ER PO ONE (00:12)
[2020-01-28] MEDS ORDERED: Magnesium Sulfate IV 1GM/100ML 1 GM/100 ML BAG IV ONE (00:12)
[2020-01-28] MEDS ORDERED: Lactated Ringers 1000 ml BAG 1,000 ML IV ONE (00:19)
[2020-01-28 00:23] LABS: Alcohol, S < 10 mg/dL (<10); Digoxin 0.5 ng/ml (0.8-2.0)
[2020-01-28] MEDS: Morphine 2 MG/ML SYRINGE IV PRN ×3 (01:33→20:13)
[2020-01-28 01:46] LABS: Vitamin D Total 25(OH) 6.5 ng/mL (20-50)
[2020-01-28] MEDS ORDERED: Heparin 5000 UNITS/ML VIAL(*) 1 ml vial SUBCUT SCH (06:00)
[2020-01-28 06:16] LABS: ABS Eosinophils 0.1 10^3/ul (0-0.6); ABS Lymphocytes 1.3 10^3/ul (1.0-4.8); Hematocrit 32 % (35-47); Hemoglobin 10.7 g/dL (12.0-16.0); Lymphocyte % 11.4 %; Mean Corpuscular HGB Conc 34 g/dL (31-36); Mean Corpuscular Hemoglobin 31 pg (27-31); Mean Corpuscular Volume 93 fL (80-97); Mean Platelet Volume 7.2 fL (7.4-10.4); Platelet Count 288 10^3/uL (150-450); Red Blood Count 3.45 10^6 /uL (3.70-4.87); Red Cell Distribution Width 15 % (10-15); White Blood Count 11.5 10^3/uL (3.5-10.8)
[2020-01-28 06:39] LABS: Calcium 7.6 mg/dL (8.6-10.3); Potassium 3.6 mmol/L (3.5-5.0)
[2020-01-28 06:45] LABS: BUN/Creatinine Ratio 13.5 (8-20); EGFR Non-African American 61.2 (>60)
[2020-01-28 06:57] LABS: Activated Partial Thrombo Time 45.2 seconds (26.0-38.0); INR 2.86 (0.82-1.09)
[2020-01-28] MEDS: ceFAZolin 1 GM ADVAN(*) 1 GM in NS 0.9% 50 ML 50 ML IVPB SCH ×2 (07:31→16:32)
[2020-01-28] MEDS ORDERED: Phytonadione Oral Solution 5 MG/25 ML UDC PO ONE (08:23)
[2020-01-28] MEDS ORDERED: Phytonadione IV (Adult) 10 MG/ML 1 ML AMP IV ONE (08:34)
[2020-01-28] MEDS: Venlafaxine XR 75 mg PO SCH (08:37)
[2020-01-28] MEDS: Senna TAB 8.6 mg TAB PO SCH ×2 (08:37→20:13)
[2020-01-28] MEDS ORDERED: Ketamine HCL 50 mg/ml 10 ml VIAL (500 MG) ONE (08:43)
[2020-01-28] MEDS ORDERED: Norepinephrine IV 1 MG/ML 4 ML VIAL ONE (08:43)
[2020-01-28] MEDS ORDERED: fentaNYL 100 mcg/2 ml 50 MCG/ML VIAL ONE (08:43)
[2020-01-28] MEDS ORDERED: Midazolam 2 mg/2 ml VIAL 1 mg/ml 2 ml VIAL (2 mg) ONE (08:43)
[2020-01-28] MEDS ORDERED: Buffered Lidocaine 1% SYRIN 1 ml INTRADERM ONE (08:44)
[2020-01-28] MEDS ORDERED: Ondansetron ODT 4 mg TAB 4 MG TAB PO ONE (08:44)
[2020-01-28] MEDS ORDERED: Famotidine IV 10 MG/ML 2 ml VIAL (20 mg) IV ONE (08:44)
[2020-01-28] MEDS ORDERED: Famotidine IV 10 MG/ML 2 ml VIAL (20 mg) ONE (08:53)
[2020-01-28] MEDS ORDERED: Ondansetron ODT 4 mg TAB 4 MG TAB ONE (08:53)
[2020-01-28] MEDS ORDERED: HYDROmorphone 1 MG/1 ML SYRINGE ONE (10:18)
[2020-01-28] MEDS ORDERED: HYDROmorphone 1 MG/1 ML SYRINGE IV PRN (10:19)
[2020-01-28] MEDS ORDERED: Prochlorperazine 5 mg/ml 2 ml VIAL (10 mg) IV PRN (10:19)
[2020-01-28] MEDS ORDERED: Naloxone 0.4 mg VIAL 0.4 mg/ml 1 ml VIAL IV PRN (10:19)
[2020-01-28] MEDS ORDERED: fentaNYL 100 mcg/2 ml 50 MCG/ML VIAL IV PRN (10:19)
[2020-01-28] MEDS ORDERED: Bupivacaine 0.5% 50 ML MDV VIAL ONE (10:43)
[2020-01-28] MEDS ORDERED: Acetaminophen IV 1 GM/100ML 100 ML ONE (10:55)
[2020-01-28] MEDS ORDERED: Metoprolol Tartrate 5 mg VIAL 5 ml VIAL (1 mg/ml) ONE (11:05)
[2020-01-28] MEDS: Lactated Ringers 1000 ml BAG 1,000 ML IV SCH (16:40)
[2020-01-28] MEDS: oxyCODONE/Acetamin 5/325 mg TAB PO PRN ×2 (16:43→21:38)
[2020-01-29] MEDS: ceFAZolin 1 GM ADVAN(*) 1 GM in NS 0.9% 50 ML 50 ML IVPB SCH ×3 (00:45→16:31)
[2020-01-29] MEDS: Lactated Ringers 1000 ml BAG 1,000 ML IV SCH (00:46)
[2020-01-29] MEDS ORDERED: Heparin 5000 UNITS/ML VIAL(*) 1 ml vial SUBCUT SCH (06:00)
[2020-01-29] MEDS: oxyCODONE/Acetamin 5/325 mg TAB PO PRN ×3 (06:03→20:41)
[2020-01-29 06:14] LABS: Urine Appearance Clear; Urine Bilirubin Negative (Negative); Urine Blood Negative (Negative); Urine Color Yellow; Urine Glucose 3+(>=500 mg/dL) (Negative); Urine Ketones Negative (Negative); Urine Nitrite Negative (Negative); Urine Protein Negative (Negative); Urine Urobilinogen Negative (Negative)
[2020-01-29 06:16] LABS: ABS Lymphocytes 0.6 10^3/ul (1.0-4.8); Hematocrit 33 % (35-47); Hemoglobin 10.8 g/dL (12.0-16.0); Lymphocyte % 4.9 %; Mean Corpuscular HGB Conc 33 g/dL (31-36); Mean Corpuscular Hemoglobin 31 pg (27-31); Mean Corpuscular Volume 94 fL (80-97); Mean Platelet Volume 7.2 fL (7.4-10.4); Platelet Count 224 10^3/uL (150-450); Red Blood Count 3.47 10^6 /uL (3.70-4.87); Red Cell Distribution Width 15 % (10-15); White Blood Count 13.2 10^3/uL (3.5-10.8)
[2020-01-29 06:32] LABS: BUN/Creatinine Ratio 17.7 (8-20); Calcium 7.8 mg/dL (8.6-10.3); EGFR African American 112.4 (>60); EGFR Non-African American 92.9 (>60); Magnesium 1.7 mg/dL (1.9-2.7); Potassium 3.9 mmol/L (3.5-5.0)
[2020-01-29] MEDS: Senna TAB 8.6 mg TAB PO SCH ×2 (09:18→20:41)
[2020-01-29] MEDS: Venlafaxine XR 75 mg PO SCH (09:18)
[2020-01-29] MEDS: Rivaroxaban 20 mg TAB (*) PO SCH (09:18)
[2020-01-29] MEDS: Morphine 2 MG/ML SYRINGE IV PRN (12:26)
[2020-01-30] MEDS: ceFAZolin 1 GM ADVAN(*) 1 GM in NS 0.9% 50 ML 50 ML IVPB SCH ×2 (00:06→07:40)
[2020-01-30] MEDS: Lactated Ringers 1000 ml BAG 1,000 ML IV SCH (01:31)
[2020-01-30] MEDS: oxyCODONE/Acetamin 5/325 mg TAB PO PRN ×3 (05:10→17:46)
[2020-01-30 07:22] LABS: Digoxin 0.4 ng/ml (0.8-2.0)
[2020-01-30 07:59] LABS: CO2 Carbon Dioxide 18 mmol/L (22-32); Calcium 8.1 mg/dL (8.6-10.3); Chloride 108 mmol/L (101-111); Sodium 139 mmol/L (135-145)
[2020-01-30 08:04] LABS: BUN/Creatinine Ratio 18.6 (8-20); Blood Urea Nitrogen 11 mg/dL (6-24); EGFR Non-African American 98.3 (>60); Glucose 70 mg/dL (70-100)
[2020-01-30 08:06] LABS: Anion Gap 13 mmol/L (2-11)
[2020-01-30] MEDS: Senna TAB 8.6 mg TAB PO SCH ×2 (08:39→20:17)
[2020-01-30] MEDS: Rivaroxaban 20 mg TAB (*) PO SCH (08:39)
[2020-01-30] MEDS: Venlafaxine XR 75 mg PO SCH (08:39)
[2020-01-30] MEDS: Magnesium Hydroxide LIQ 30 ML UDC PO PRN ×2 (08:40→20:19)
[2020-01-30 09:12] LABS: ABS Eosinophils 0.2 10^3/ul (0-0.6); ABS Monocytes 0.7 10^3/ul (0-0.8); Eosinophil % 2.1 %; Hematocrit 26 % (35-47); Hemoglobin 8.8 g/dL (12.0-16.0); Lymphocyte % 9.4 %; Mean Corpuscular HGB Conc 34 g/dL (31-36); Mean Corpuscular Hemoglobin 31 pg (27-31); Mean Corpuscular Volume 93 fL (80-97); Mean Platelet Volume 7.3 fL (7.4-10.4); Platelet Count 257 10^3/uL (150-450); Red Blood Count 2.82 10^6 /uL (3.70-4.87); Red Cell Distribution Width 15 % (10-15); White Blood Count 10.3 10^3/uL (3.5-10.8)
[2020-01-30 09:31] LABS: Magnesium 1.4 mg/dL (1.9-2.7); Potassium Redraw 3.5 mmol/L (3.5-5.0)
[2020-01-30] MEDS ORDERED: Magnesium Sulfate 2 gm BAG 2 GM/50 ML BAG IVPB ONE (22:15)
[2020-01-31] MEDS: oxyCODONE/Acetamin 5/325 mg TAB PO PRN ×4 (02:13→20:52)
[2020-01-31 05:56] LABS: ABS Basophils 0.1 10^3/ul (0-0.2); ABS Eosinophils 0.3 10^3/ul (0-0.6); ABS Monocytes 0.6 10^3/ul (0-0.8); Eosinophil % 3.4 %; Hematocrit 29 % (35-47); Hemoglobin 9.7 g/dL (12.0-16.0); Lymphocyte % 11.6 %; Mean Corpuscular HGB Conc 34 g/dL (31-36); Mean Corpuscular Hemoglobin 31 pg (27-31); Mean Corpuscular Volume 93 fL (80-97); Mean Platelet Volume 7.3 fL (7.4-10.4); Platelet Count 286 10^3/uL (150-450); Red Cell Distribution Width 16 % (10-15); White Blood Count 8.6 10^3/uL (3.5-10.8)
[2020-01-31 06:45] LABS: Magnesium 2.3 mg/dL (1.9-2.7)
[2020-01-31 06:51] LABS: BUN/Creatinine Ratio 17.5 (8-20); EGFR African American 123.8 (>60); EGFR Non-African American 102.3 (>60)
[2020-01-31 06:58] LABS: Potassium 4.4 mmol/L (3.5-5.0)
[2020-01-31] MEDS: Senna TAB 8.6 mg TAB PO SCH ×2 (08:32→20:33)
[2020-01-31] MEDS: Venlafaxine XR 75 mg PO SCH (08:33)
[2020-01-31] MEDS: Rivaroxaban 20 mg TAB (*) PO SCH (08:33)
[2020-01-31] MEDS: Lidocaine PATCH 5% PATCH TRANSDERM SCH (15:22)
[2020-01-31] MEDS ORDERED: Lidocaine Patch REMOVE PATCH SCH (21:00)
[2020-02-01] MEDS: oxyCODONE/Acetamin 5/325 mg TAB PO PRN (06:12)
[2020-02-01] MEDS: Lidocaine PATCH 5% PATCH TRANSDERM SCH (08:24)
[2020-02-01] MEDS: Rivaroxaban 20 mg TAB (*) PO SCH (08:35)
[2020-02-01] MEDS: Venlafaxine XR 75 mg PO SCH (08:35)
[2020-02-01] MEDS: Senna TAB 8.6 mg TAB PO SCH (08:35)
[2020-02-01 12:01] VITALS: BP 98/60
== END 2020-02-01 13:45 | disposition swing bed (61) | DRG 493 ==
LOC: ED 19:51 → SSU 01-28 00:08 → SDS 01-28 00:27
PROVIDERS: ADMIT Pediatrics; ATTEND Internal Medicine

== ENCOUNTER 2020-05-21 11:32 | Observation (INO) ==
[2020-05-21] MEDS ORDERED: ceFAZolin 2 GM PREMIX 2 GM/50 ML BAG IVPB ONE (12:30)
[2020-05-21] MEDS ORDERED: ceFAZolin VIAL 1 GM in NS *SYRINGE * * 10 ML IVPB ONE (12:30)
[2020-05-21] MEDS ORDERED: Lidocaine 1% VIAL 10 MG/ML VIAL ONE (13:22)
[2020-05-21] MEDS ORDERED: Naloxone 0.4 mg VIAL 0.4 mg/ml 1 ml VIAL ONE (13:32)
[2020-05-21] MEDS ORDERED: fentaNYL 100 mcg/2 ml 50 MCG/ML VIAL ONE (13:32)
[2020-05-21] MEDS ORDERED: Flumazenil 0.5 mg/5 ml 0.1 MG/ML 5 ml VIAL ONE (13:32)
[2020-05-21] MEDS ORDERED: Midazolam 5 mg/5 ml VIAL 1 mg/ml 5 ml VIAL (5 mg) ONE (13:32)
[2020-05-21] MEDS ORDERED: Magnesium Hydroxide LIQ 30 ML UDC PO PRN (15:52)
[2020-05-21] MEDS: oxyCODONE/Acetamin 5/325 mg TAB PO PRN ×2 (16:10→20:18)
[2020-05-21] MEDS: ceFAZolin VIAL 1 GM in NS 0.9% 50 ML 50 ML IVPB SCH (20:12)
[2020-05-21] MEDS: Lidocaine PATCH 5% PATCH TRANSDERM SCH (20:14)
[2020-05-21] MEDS ORDERED: Lidocaine Patch REMOVE PATCH PATCH OFF SCH (21:00)
[2020-05-22] MEDS: oxyCODONE/Acetamin 5/325 mg TAB PO PRN ×2 (03:26→11:00)
[2020-05-22] MEDS: ceFAZolin VIAL 1 GM in NS 0.9% 50 ML 50 ML IVPB SCH (05:14)
[2020-05-22] MEDS: Lidocaine PATCH 5% PATCH TRANSDERM SCH (08:52)
[2020-05-22 08:58] VITALS: BP 124/84
== END 2020-05-22 12:18 | disposition home or self-care (01) ==
LOC: CHICATH 11:32 → MEDTELE 11:32
PROVIDERS: ADMIT Specialist; ATTEND Specialist

== ENCOUNTER 2020-12-07 11:11 | Inpatient (IN) ==
[2020-12-07] MEDS ORDERED: Ondansetron 4 mg VIAL 2 MG/ML 2 ml VIAL IV ONE ×4 (11:36→19:25)
[2020-12-07] MEDS: Morphine 2 MG/ML SYRINGE IV PRN (12:56)
[2020-12-07 13:29] LABS: Urine Appearance Clear; Urine Bilirubin Negative (Negative); Urine Blood 1+ (Negative); Urine Color Straw; Urine Glucose Negative (Negative); Urine Ketones Negative (Negative); Urine Nitrite Negative (Negative); Urine Protein Negative (Negative); Urine Specific Gravity 1.004 (1.010-1.030); Urine Urobilinogen Negative (Negative)
[2020-12-07 13:32] LABS: Urine Bacteria Absent (Absent); Urine Red Blood Cell Trace(0-2/hpf) (Absent); Urine Squamous Epithelial Cell Present (Absent); Urine White Blood Cell Trace(0-5/hpf) (Absent)
[2020-12-07] MEDS ORDERED: Morphine 4 MG/ML VIAL (1 ml) IV ONE ×2 (14:04→16:37)
[2020-12-07 14:07] LABS: ABS Lymphocytes 1.3 10^3/ul (1.0-4.8); ABS Monocytes 0.9 10^3/ul (0-0.8); ABS Neutrophils 5.9 10^3/ul (1.5-7.7); Eosinophil % 0.5 %; Hematocrit 42 % (35-47); Hemoglobin 14.1 g/dL (12.0-16.0); Lymphocyte % 16.4 %; Mean Corpuscular HGB Conc 34 g/dL (31-36); Mean Corpuscular Hemoglobin 32 pg (27-31); Mean Corpuscular Volume 94 fL (80-97); Mean Platelet Volume 6.4 fL (7.4-10.4); Platelet Count 324 10^3/uL (150-450); Red Blood Count 4.48 10^6 /uL (3.70-4.87); Red Cell Distribution Width 17 % (10-15); White Blood Count 8.1 10^3/uL (3.5-10.8)
[2020-12-07 14:19] LABS: Troponin I 0.01 ng/mL (<0.03)
[2020-12-07 15:32] LABS: Albumin 3.9 g/dL (3.2-5.2); Anion Gap 9 mmol/L (2-11); CO2 Carbon Dioxide 20 mmol/L (22-32); Chloride 108 mmol/L (101-111); Potassium 3.9 mmol/L (3.5-5.0); Sodium 137 mmol/L (135-145)
[2020-12-07 15:38] LABS: ALT 11 U/L (7-52); AST 22 U/L (13-39); Albumin/Globulin Ratio 1.3 (1-3); Alkaline Phosphatase 65 U/L (34-104); BUN/Creatinine Ratio 12.3 (8-20); Blood Urea Nitrogen 7 mg/dL (6-24); C Reactive Protein 1.58 mg/L (<8.01); EGFR African American 123.5 (>60); EGFR Non-African American 102.1 (>60); Glucose 105 mg/dL (70-100); Total Protein 6.9 g/dL (6.4-8.9)
[2020-12-07] MEDS ORDERED: Iohexol 350 (CONTRAST) 500 ML MDV IV ONE (15:47)
[2020-12-07] MEDS ORDERED: Al Hydrox/Mg Hydrox/Simet LIQ 30 ML UDC PO ONE (19:06)
[2020-12-07] MEDS ORDERED: Ondansetron 4 mg VIAL 2 MG/ML 2 ml VIAL ONE (19:21)
[2020-12-08] MEDS: Enoxaparin 60 MG/0.6 ML SYR SUBCUT SCH ×3 (00:07→12:06)
[2020-12-08 00:08] LABS: Digoxin < 0.3 ng/ml (0.8-2.0)
[2020-12-08] MEDS: Morphine 2 MG/ML SYRINGE IV PRN ×3 (01:27→22:39)
[2020-12-08] MEDS: Ondansetron 4 mg VIAL 2 MG/ML 2 ml VIAL IV PRN ×3 (02:58→22:39)
[2020-12-08 03:49] LABS: Lipase < 10 U/L (11.0-82.0)
[2020-12-08 03:55] LABS: ABS Eosinophils 0.1 10^3/ul (0-0.6); ABS Lymphocytes 1.4 10^3/ul (1.0-4.8); ABS Monocytes 0.9 10^3/ul (0-0.8); ABS Neutrophils 5.5 10^3/ul (1.5-7.7); Eosinophil % 0.7 %; Hematocrit 41 % (35-47); Hemoglobin 13.8 g/dL (12.0-16.0); Lymphocyte % 17.8 %; Mean Corpuscular HGB Conc 34 g/dL (31-36); Mean Corpuscular Hemoglobin 32 pg (27-31); Mean Corpuscular Volume 94 fL (80-97); Mean Platelet Volume 6.2 fL (7.4-10.4); Nucleated Red Blood Cells % 0.1; Platelet Count 328 10^3/uL (150-450); Red Blood Count 4.35 10^6 /uL (3.70-4.87); Red Cell Distribution Width 17 % (10-15); White Blood Count 7.8 10^3/uL (3.5-10.8)
[2020-12-08 04:01] LABS: Activated Partial Thrombo Time 37.7 seconds (26.0-38.0); INR 1.1 (0.82-1.09)
[2020-12-08 04:10] LABS: BUN/Creatinine Ratio 13.1 (8-20); Calcium 8.7 mg/dL (8.6-10.3); EGFR African American 114.2 (>60); EGFR Non-African American 94.4 (>60); Potassium 3.9 mmol/L (3.5-5.0)
[2020-12-08] MEDS ORDERED: NS 0.9% 1000 ml BAG 1,000 ML IV SCH (08:00)
[2020-12-08] MEDS: Polyethylene Glycol 3350 17 GM PACKET PO SCH ×2 (09:27→22:39)
[2020-12-09] MEDS: Enoxaparin 60 MG/0.6 ML SYR SUBCUT SCH ×3 (00:39→23:10)
[2020-12-09] MEDS ORDERED: NS 0.9% 500 ml BAG 500 ML IV ONE (03:43)
[2020-12-09] MEDS ORDERED: NS 0.9% 1000 ml BAG 1,000 ML IV SCH (05:00)
[2020-12-09 06:16] LABS: Calcium 7.9 mg/dL (8.6-10.3); Digoxin 0.5 ng/ml (0.8-2.0); EGFR Non-African American 90.9 (>60); Potassium 4.1 mmol/L (3.5-5.0)
[2020-12-09] MEDS: Polyethylene Glycol 3350 17 GM PACKET PO SCH ×2 (08:47→20:25)
[2020-12-09] MEDS: Morphine 2 MG/ML SYRINGE IV PRN ×4 (10:55→23:11)
[2020-12-09] MEDS: Ondansetron 4 mg VIAL 2 MG/ML 2 ml VIAL IV PRN (18:33)
[2020-12-09] MEDS: Pantoprazole VIAL 40 MG VIAL IV SCH (20:15)
[2020-12-09] MEDS: Lidocaine PATCH 5% PATCH TRANSDERM SCH (23:10)
[2020-12-10 06:25] LABS: ABS Eosinophils 0.1 10^3/ul (0-0.6); ABS Lymphocytes 1.5 10^3/ul (1.0-4.8); ABS Monocytes 0.7 10^3/ul (0-0.8); ABS Neutrophils 4.3 10^3/ul (1.5-7.7); Hematocrit 35 % (35-47); Hemoglobin 11.8 g/dL (12.0-16.0); Lymphocyte % 23.2 %; Mean Corpuscular HGB Conc 34 g/dL (31-36); Mean Corpuscular Hemoglobin 32 pg (27-31); Mean Corpuscular Volume 96 fL (80-97); Mean Platelet Volume 6.8 fL (7.4-10.4); Platelet Count 266 10^3/uL (150-450); Red Blood Count 3.67 10^6 /uL (3.70-4.87); Red Cell Distribution Width 17 % (10-15); White Blood Count 6.6 10^3/uL (3.5-10.8)
[2020-12-10 06:52] LABS: Albumin 3.4 g/dL (3.2-5.2); Albumin/Globulin Ratio 1.5 (1-3); BUN/Creatinine Ratio 16.4 (8-20); EGFR African American 114.2 (>60); EGFR Non-African American 94.4 (>60); Globulin 2.3 g/dL (2-4); Total Bilirubin 0.4 mg/dL (0.2-1.0); Total Protein 5.7 g/dL (6.4-8.9)
[2020-12-10] MEDS: Pantoprazole VIAL 40 MG VIAL IV SCH (08:28)
[2020-12-10] MEDS: Polyethylene Glycol 3350 17 GM PACKET PO SCH ×2 (08:28→22:28)
[2020-12-10] MEDS: Ondansetron 4 mg VIAL 2 MG/ML 2 ml VIAL IV PRN (10:13)
[2020-12-10] MEDS: Morphine 2 MG/ML SYRINGE IV PRN ×2 (10:13→18:35)
[2020-12-10] MEDS: Lidocaine Patch REMOVE PATCH PATCH OFF SCH (11:43)
[2020-12-10] MEDS: Enoxaparin 60 MG/0.6 ML SYR SUBCUT SCH ×2 (11:43→22:27)
[2020-12-10] MEDS: Bacitracin OINTMENT TUBE TOPICAL SCH ×2 (14:54→22:44)
[2020-12-11] MEDS: Morphine 2 MG/ML SYRINGE IV PRN ×3 (00:25→14:36)
[2020-12-11] MEDS: Pantoprazole VIAL 40 MG VIAL IV SCH ×3 (00:26→22:47)
[2020-12-11 06:14] LABS: ABS Basophils 0.1 10^3/ul (0-0.2); ABS Eosinophils 0.1 10^3/ul (0-0.6); ABS Lymphocytes 1.4 10^3/ul (1.0-4.8); ABS Monocytes 0.6 10^3/ul (0-0.8); ABS Neutrophils 4.1 10^3/ul (1.5-7.7); Eosinophil % 1.4 %; Hematocrit 37 % (35-47); Hemoglobin 12.6 g/dL (12.0-16.0); Lymphocyte % 21.5 %; Mean Corpuscular HGB Conc 34 g/dL (31-36); Mean Corpuscular Hemoglobin 33 pg (27-31); Mean Corpuscular Volume 95 fL (80-97); Mean Platelet Volume 6.4 fL (7.4-10.4); Nucleated Red Blood Cells % 0.2; Platelet Count 291 10^3/uL (150-450); Red Blood Count 3.88 10^6 /uL (3.70-4.87); Red Cell Distribution Width 17 % (10-15); White Blood Count 6.3 10^3/uL (3.5-10.8)
[2020-12-11 06:34] LABS: Calcium 8.1 mg/dL (8.6-10.3); Magnesium 2.1 mg/dL (1.9-2.7); Potassium 3.9 mmol/L (3.5-5.0)
[2020-12-11 06:39] LABS: BUN/Creatinine Ratio 10.3 (8-20)
[2020-12-11] MEDS: Ondansetron 4 mg VIAL 2 MG/ML 2 ml VIAL IV PRN (11:54)
[2020-12-11] MEDS: Furosemide 20 mg/2 ml IV VIAL IV SLOW PU SCH (12:05)
[2020-12-11] MEDS: Polyethylene Glycol 3350 17 GM PACKET PO SCH ×2 (12:16→22:47)
[2020-12-11] MEDS: Enoxaparin 60 MG/0.6 ML SYR SUBCUT SCH ×2 (12:32→22:49)
[2020-12-11] MEDS: Lidocaine PATCH 5% PATCH TRANSDERM SCH (12:33)
[2020-12-11] MEDS: Bacitracin OINTMENT TUBE TOPICAL SCH ×2 (12:43→22:47)
[2020-12-11] MEDS ORDERED: NS 0.9% 500 ml BAG 500 ML IV ONE (14:22)
[2020-12-11] MEDS: NS 0.9% 1000 ml BAG 1,000 ML IV SCH (14:51)
[2020-12-11] MEDS: Lidocaine Patch REMOVE PATCH PATCH OFF SCH (22:46)
[2020-12-12 07:13] LABS: ABS Eosinophils 0.1 10^3/ul (0-0.6); ABS Lymphocytes 1.1 10^3/ul (1.0-4.8); ABS Monocytes 0.7 10^3/ul (0-0.8); Eosinophil % 0.9 %; Hematocrit 42 % (35-47); Hemoglobin 14.1 g/dL (12.0-16.0); Lymphocyte % 13.4 %; Mean Corpuscular HGB Conc 34 g/dL (31-36); Mean Corpuscular Hemoglobin 32 pg (27-31); Mean Corpuscular Volume 95 fL (80-97); Mean Platelet Volume 6.7 fL (7.4-10.4); Platelet Count 299 10^3/uL (150-450); Red Cell Distribution Width 16 % (10-15); White Blood Count 7.9 10^3/uL (3.5-10.8)
[2020-12-12 07:39] LABS: BUN/Creatinine Ratio 12.1 (8-20); Calcium 8.1 mg/dL (8.6-10.3); Magnesium 1.9 mg/dL (1.9-2.7); Potassium 3.9 mmol/L (3.5-5.0)
[2020-12-12] MEDS: Bacitracin OINTMENT TUBE TOPICAL SCH ×2 (07:44→22:02)
[2020-12-12] MEDS: Pantoprazole VIAL 40 MG VIAL IV SCH ×2 (08:25→22:02)
[2020-12-12] MEDS: Lidocaine PATCH 5% PATCH TRANSDERM SCH (08:28)
[2020-12-12] MEDS: Polyethylene Glycol 3350 17 GM PACKET PO SCH ×3 (08:28→22:07)
[2020-12-12] MEDS: Enoxaparin 60 MG/0.6 ML SYR SUBCUT SCH (11:13)
[2020-12-12] MEDS: NS 0.9% 1000 ml BAG 1,000 ML IV SCH (14:32)
[2020-12-12] MEDS: Morphine 2 MG/ML SYRINGE IV PRN ×2 (14:50→18:47)
[2020-12-12] MEDS: Lidocaine Patch REMOVE PATCH PATCH OFF SCH (22:05)
[2020-12-13] MEDS: Enoxaparin 60 MG/0.6 ML SYR SUBCUT SCH ×2 (00:53→10:13)
[2020-12-13 06:35] LABS: ABS Eosinophils 0.1 10^3/ul (0-0.6); ABS Monocytes 0.6 10^3/ul (0-0.8); ABS Neutrophils 5.6 10^3/ul (1.5-7.7); Eosinophil % 1.1 %; Hematocrit 40 % (35-47); Hemoglobin 14.2 g/dL (12.0-16.0); Lymphocyte % 13.7 %; Mean Corpuscular HGB Conc 35 g/dL (31-36); Mean Corpuscular Hemoglobin 33 pg (27-31); Mean Corpuscular Volume 95 fL (80-97); Mean Platelet Volume 6.7 fL (7.4-10.4); Nucleated Red Blood Cells % 0.1; Platelet Count 279 10^3/uL (150-450); Red Blood Count 4.27 10^6 /uL (3.70-4.87); Red Cell Distribution Width 16 % (10-15); White Blood Count 7.2 10^3/uL (3.5-10.8)
[2020-12-13 06:57] LABS: CO2 Carbon Dioxide 20 mmol/L (22-32); Calcium 7.7 mg/dL (8.6-10.3); Chloride 108 mmol/L (101-111); Sodium 136 mmol/L (135-145)
[2020-12-13 07:03] LABS: BUN/Creatinine Ratio 17.4 (8-20); Blood Urea Nitrogen 8 mg/dL (6-24); EGFR African American 158.2 (>60); EGFR Non-African American 130.7 (>60); Glucose 54 mg/dL (70-100)
[2020-12-13 07:15] LABS: Anion Gap 8 mmol/L (2-11)
[2020-12-13] MEDS ORDERED: Lactated Ringers 1000 ml BAG 1,000 ML IV SCH (08:00)
[2020-12-13 08:26] LABS: Potassium Redraw 4.3 mmol/L (3.5-5.0)
[2020-12-13] MEDS ORDERED: Digoxin IV 0.5 MG/2 ML AMP (0.25 MG/ML) IV SLOW PU ONE (09:12)
[2020-12-13] MEDS: Polyethylene Glycol 3350 17 GM PACKET PO SCH ×2 (09:56→20:28)
[2020-12-13] MEDS: Bacitracin OINTMENT TUBE TOPICAL SCH ×2 (10:09→20:25)
[2020-12-13] MEDS: Furosemide 20 mg/2 ml IV VIAL IV SLOW PU SCH (10:10)
[2020-12-13] MEDS: Pantoprazole VIAL 40 MG VIAL IV SCH ×2 (10:10→20:26)
[2020-12-13] MEDS: Lidocaine PATCH 5% PATCH TRANSDERM SCH (10:14)
[2020-12-13] MEDS: Morphine 2 MG/ML SYRINGE IV PRN (10:53)
[2020-12-13] MEDS ORDERED: CALCIUM GLUCONATE 1GM/50ML NS 1 GM/50 ML BAG IV ONE (12:00)
[2020-12-13 18:22] LABS: Magnesium 1.9 mg/dL (1.9-2.7)
[2020-12-13] MEDS: Lidocaine Patch REMOVE PATCH PATCH OFF SCH (20:28)
[2020-12-13] MEDS ORDERED: Calcium Gluconate 2 GM in NS 0.9% 100 ml BAG 100 ML IV ONE (20:53)
[2020-12-13 20:57] LABS: Calcium 7.8 mg/dL (8.6-10.3)
[2020-12-14 05:41] LABS: BUN/Creatinine Ratio 22.8 (8-20); Calcium 8.9 mg/dL (8.6-10.3); EGFR African American 123.5 (>60); EGFR Non-African American 102.1 (>60); Magnesium 1.7 mg/dL (1.9-2.7); Potassium 3.8 mmol/L (3.5-5.0)
[2020-12-14] MEDS ORDERED: Buffered Lidocaine 1% SYRIN 1 ml INTRADERM ONE (06:00)
[2020-12-14 06:17] LABS: Digoxin 1.2 ng/ml (0.8-2.0)
[2020-12-14] MEDS ORDERED: Dextrose 50% VIAL 50 ml IV PRN (06:22)
[2020-12-14] MEDS ORDERED: Dextrose 50% VIAL 50 ml IV ONE (06:31)
[2020-12-14] MEDS ORDERED: NS 0.9% 500 ml BAG 500 ML IV ONE (07:59)
[2020-12-14] MEDS ORDERED: Potassium Chlor 20 meq TAB.ER PO ONE (08:12)
[2020-12-14] MEDS ORDERED: Magnesium Sulfate IV 3 GM in NS 0.9% 100 ml BAG 100 ML IVPB ONE (08:12)
[2020-12-14] MEDS: Pantoprazole VIAL 40 MG VIAL IV SCH ×2 (08:50→22:00)
[2020-12-14] MEDS: Polyethylene Glycol 3350 17 GM PACKET PO SCH ×2 (08:55→21:34)
[2020-12-14] MEDS: Bacitracin OINTMENT TUBE TOPICAL SCH ×2 (08:58→22:01)
[2020-12-14] MEDS ORDERED: Lactated Ringers 500 ml BAG 500 ML IV SCH (09:00)
[2020-12-14] MEDS ORDERED: Lactated Ringers 1000 ml BAG 500 ML IV SCH (09:00)
[2020-12-14] MEDS: Lidocaine PATCH 5% PATCH TRANSDERM SCH ×2 (09:03→19:10)
[2020-12-14] MEDS: Lactated Ringers 1000 ml BAG 1,000 ML IV SCH ×3 (09:28→21:17)
[2020-12-14] MEDS ORDERED: Bupivacaine 0.25% EPI 200,000 30 ML SDV ONE (10:48)
[2020-12-14] MEDS ORDERED: Artificial Tear OPHTH.OINT 3.5 GM BOTH EYES PRN (10:48)
[2020-12-14] MEDS ORDERED: Dextran 70/Hypromellose Tears Eye Drops 15 ml BTL (for Artificials Tears) BOTH EYES PRN (11:08)
[2020-12-14] MEDS ORDERED: Propofol 10 MG/ML 20 ML BTL ONE (11:58)
[2020-12-14] MEDS ORDERED: fentaNYL 250 mcg/5 ml 50 MCG/ML 5 ml VIAL (250 MCG) ONE (11:58)
[2020-12-14] MEDS ORDERED: Rocuronium 50 mg VIAL 10 mg/ml 5 ml VIAL (50 mg) ONE ×2 (11:58→14:16)
[2020-12-14] MEDS ORDERED: ceFAZolin 2 GM PREMIX 2 GM/50 ML BAG ONE (12:28)
[2020-12-14] MEDS ORDERED: ceFAZolin 1 GM ADVAN 1 GM ADDV.VIAL IVPB ONE (12:31)
[2020-12-14] MEDS ORDERED: EPHEDrine (Pressors) 50 MG/ML VIAL ONE (13:11)
[2020-12-14] MEDS ORDERED: Phenylephrine 40 mcg/mL 10mL (400mcg) SYRINGE ONE ×3 (13:31→16:29)
[2020-12-14] MEDS ORDERED: Ondansetron 4 mg VIAL 2 MG/ML 2 ml VIAL IV PRN (13:46)
[2020-12-14] MEDS ORDERED: Naloxone 0.4 mg VIAL 0.4 mg/ml 1 ml VIAL IV PRN (13:46)
[2020-12-14] MEDS ORDERED: Esmolol 10 MG/ML 10 ML (100 mg) ONE (15:17)
[2020-12-14] MEDS ORDERED: ceFAZolin 1 GM ADVAN 1 GM in NS 0.9% 50 ML 50 ML IVPB ONE (15:51)
[2020-12-14] MEDS ORDERED: Phenylephrine IV 10 MG/ML 1 ml VIAL ONE (16:36)
[2020-12-14] MEDS ORDERED: Metoprolol Tartrate 5 mg VIAL 5 ml VIAL (1 mg/ml) ONE (16:48)
[2020-12-14] MEDS ORDERED: Digoxin IV 0.5 MG/2 ML AMP (0.25 MG/ML) IV SLOW PU SCH (17:00)
[2020-12-14] MEDS ORDERED: fentaNYL 100 mcg/2 ml 50 MCG/ML VIAL ONE ×2 (17:17→21:11)
[2020-12-14] MEDS ORDERED: HYDROmorphone 1 MG/1 ML SYRINGE ONE (17:17)
[2020-12-14] MEDS: fentaNYL 100 mcg/2 ml 50 MCG/ML VIAL IV PRN ×4 (17:19→18:01)
[2020-12-14] MEDS: HYDROmorphone 1 MG/1 ML SYRINGE IV PRN ×5 (17:20→18:11)
[2020-12-14] MEDS ORDERED: Digoxin IV 0.5 MG/2 ML AMP (0.25 MG/ML) IV SLOW PU ONE (18:27)
[2020-12-14] MEDS ORDERED: Metoprolol Tartrate 5 mg VIAL 5 ml VIAL (1 mg/ml) IV ONE (18:28)
[2020-12-14] MEDS: Morphine 2 MG/ML SYRINGE IV PRN ×2 (19:49→23:33)
[2020-12-14] MEDS: Morphine ORAL CONCENTRATE 5 MG/0.25 ML ORAL.SYRIN SL PRN (20:53)
[2020-12-14] MEDS: fentaNYL 100 mcg/2 ml 50 MCG/ML VIAL IV SLOW PU PRN (21:15)
[2020-12-14] MEDS: Lidocaine Patch REMOVE PATCH PATCH OFF SCH (21:34)
[2020-12-14] MEDS: Metoprolol Tartrate 5 mg VIAL 5 ml VIAL (1 mg/ml) IV SCH (23:32)
[2020-12-15] MEDS ORDERED: Metoprolol Tartrate 5 mg VIAL 5 ml VIAL (1 mg/ml) IV SCH (00:01)
[2020-12-15] MEDS: Morphine ORAL CONCENTRATE 5 MG/0.25 ML ORAL.SYRIN SL PRN ×2 (00:55→04:12)
[2020-12-15] MEDS: fentaNYL 100 mcg/2 ml 50 MCG/ML VIAL IV SLOW PU PRN ×2 (01:16→05:08)
[2020-12-15] MEDS: Morphine 2 MG/ML SYRINGE IV PRN ×2 (03:18→06:47)
[2020-12-15] MEDS: Lactated Ringers 1000 ml BAG 1,000 ML IV SCH ×2 (04:40→14:04)
[2020-12-15] MEDS: Metoprolol Tartrate 5 mg VIAL 5 ml VIAL (1 mg/ml) IV SCH ×3 (05:19→15:18)
[2020-12-15 05:44] LABS: ABS Lymphocytes 0.7 10^3/ul (1.0-4.8); ABS Monocytes 0.9 10^3/ul (0-0.8); ABS Neutrophils 9.8 10^3/ul (1.5-7.7); Hematocrit 40 % (35-47); Hemoglobin 13.3 g/dL (12.0-16.0); Lymphocyte % 6.1 %; Mean Corpuscular HGB Conc 33 g/dL (31-36); Mean Corpuscular Hemoglobin 32 pg (27-31); Mean Corpuscular Volume 96 fL (80-97); Platelet Count 311 10^3/uL (150-450); Red Blood Count 4.17 10^6 /uL (3.70-4.87); Red Cell Distribution Width 16 % (10-15); White Blood Count 11.4 10^3/uL (3.5-10.8)
[2020-12-15 06:00] LABS: Calcium 8.4 mg/dL (8.6-10.3); Magnesium 1.9 mg/dL (1.9-2.7); Potassium 4.8 mmol/L (3.5-5.0)
[2020-12-15 06:05] LABS: BUN/Creatinine Ratio 16.2 (8-20); EGFR African American 100.7 (>60); EGFR Non-African American 83.3 (>60)
[2020-12-15] MEDS: Lidocaine PATCH 5% PATCH TRANSDERM SCH (08:01)
[2020-12-15] MEDS ORDERED: fentaNYL 100 mcg/2 ml 50 MCG/ML VIAL IV SLOW PU PRN ×2 (08:10→19:24)
[2020-12-15] MEDS: Polyethylene Glycol 3350 17 GM PACKET PO SCH (08:19)
[2020-12-15] MEDS: Pantoprazole VIAL 40 MG VIAL IV SCH ×2 (08:36→20:52)
[2020-12-15] MEDS: Bacitracin OINTMENT TUBE TOPICAL SCH (08:36)
[2020-12-15] MEDS ORDERED: Polyethylene Glycol 3350 17 GM PACKET PO PRN (08:43)
[2020-12-15] MEDS: Lidocaine Patch REMOVE PATCH PATCH OFF SCH (21:19)
[2020-12-16 06:02] LABS: ABS Lymphocytes 0.7 10^3/ul (1.0-4.8); ABS Monocytes 0.9 10^3/ul (0-0.8); ABS Neutrophils 10.5 10^3/ul (1.5-7.7); Eosinophil % 0.2 %; Hematocrit 42 % (35-47); Hemoglobin 14.4 g/dL (12.0-16.0); Lymphocyte % 5.4 %; Mean Corpuscular HGB Conc 35 g/dL (31-36); Mean Corpuscular Hemoglobin 33 pg (27-31); Mean Corpuscular Volume 95 fL (80-97); Platelet Count 298 10^3/uL (150-450); Red Blood Count 4.38 10^6 /uL (3.70-4.87); Red Cell Distribution Width 16 % (10-15); White Blood Count 12.1 10^3/uL (3.5-10.8)
[2020-12-16 06:13] LABS: Calcium 8.4 mg/dL (8.6-10.3); Potassium 3.7 mmol/L (3.5-5.0)
[2020-12-16 06:19] LABS: BUN/Creatinine Ratio 9.4 (8-20); Digoxin 1.2 ng/ml (0.8-2.0); EGFR African American 134.3 (>60)
[2020-12-16] MEDS: Pantoprazole VIAL 40 MG VIAL IV SCH (07:56)
[2020-12-16] MEDS: Lidocaine PATCH 5% PATCH TRANSDERM SCH (07:58)
[2020-12-16] MEDS ORDERED: Naloxone 0.4 mg VIAL 0.4 mg/ml 1 ml VIAL ONE (12:27)
[2020-12-16] MEDS ORDERED: Naloxone Nasal Spray 4 MG/0.1 ML NASAL.SPR INTRANASAL PRN (12:41)
[2020-12-16] MEDS ORDERED: Naloxone 0.4 mg VIAL 0.4 mg/ml 1 ml VIAL IV PUSH ONE (12:42)
[2020-12-16] MEDS ORDERED: Naloxone 0.4 mg VIAL 0.4 mg/ml 1 ml VIAL IV PUSH PRN (12:44)
[2020-12-16] MEDS: Lidocaine Patch REMOVE PATCH PATCH OFF SCH (21:26)
[2020-12-17 06:06] LABS: ABS Basophils 0.1 10^3/ul (0-0.2); ABS Lymphocytes 0.9 10^3/ul (1.0-4.8); ABS Monocytes 0.9 10^3/ul (0-0.8); ABS Neutrophils 9.9 10^3/ul (1.5-7.7); Eosinophil % 0.2 %; Hematocrit 37 % (35-47); Hemoglobin 12.8 g/dL (12.0-16.0); Lymphocyte % 7.5 %; Mean Corpuscular HGB Conc 34 g/dL (31-36); Mean Corpuscular Hemoglobin 32 pg (27-31); Mean Corpuscular Volume 94 fL (80-97); Mean Platelet Volume 7.5 fL (7.4-10.4); Nucleated Red Blood Cells % 0.1; Platelet Count 244 10^3/uL (150-450); Red Blood Count 3.96 10^6 /uL (3.70-4.87); Red Cell Distribution Width 16 % (10-15); White Blood Count 11.8 10^3/uL (3.5-10.8)
[2020-12-17 06:28] LABS: Calcium 8.5 mg/dL (8.6-10.3); EGFR African American 143.6 (>60); EGFR Non-African American 118.7 (>60); Magnesium 1.7 mg/dL (1.9-2.7); Potassium 3.4 mmol/L (3.5-5.0)
[2020-12-17 06:33] LABS: Digoxin 1.2 ng/ml (0.8-2.0)
[2020-12-17] MEDS: Lidocaine PATCH 5% PATCH TRANSDERM SCH (09:38)
[2020-12-17] MEDS ORDERED: Potassium Chlor 20 meq TAB.ER PO ONE (14:03)
[2020-12-17] MEDS: Lidocaine Patch REMOVE PATCH PATCH OFF SCH ×2 (22:57→23:31)
[2020-12-18] MEDS: Lidocaine PATCH 5% PATCH TRANSDERM SCH (09:40)
[2020-12-18] MEDS: Lidocaine Patch REMOVE PATCH PATCH OFF SCH (20:28)
[2020-12-19] MEDS ORDERED: Lidocaine PATCH 5% PATCH ONE (01:20)
[2020-12-19] MEDS ORDERED: Lidocaine PATCH 5% PATCH TRANSDERM SCH (01:25)
[2020-12-19 06:15] LABS: Calcium 8.8 mg/dL (8.6-10.3); EGFR African American 123.5 (>60); EGFR Non-African American 102.1 (>60); Magnesium 1.7 mg/dL (1.9-2.7)
[2020-12-19] MEDS ORDERED: Magnesium Sulfate 2 gm BAG 2 GM/50 ML BAG IVPB ONE (07:13)
[2020-12-19 08:34] VITALS: BP 112/67
[2020-12-19] MEDS ORDERED: Lidocaine Patch REMOVE PATCH PATCH OFF SCH (09:00)
[2020-12-19] MEDS: Lidocaine PATCH 5% PATCH TRANSDERM SCH ×2 (09:05→09:25)
[2020-12-20] MEDS ORDERED: Lidocaine Patch REMOVE PATCH PATCH OFF SCH (21:00)
== END 2020-12-19 11:10 | DRG 327 ==
LOC: ED 11:11 → MEDTELE 11:11 → ICU 12-14 18:27 → SSU 12-15 07:55
PROVIDERS: ADMIT Hospitalist; ATTEND Internal Medicine

== ENCOUNTER 2021-01-31 19:21 | Inpatient (IN) ==
[2021-01-31 19:59] LABS: Hematocrit 35 % (35-47); Hemoglobin 11.4 g/dL (12.0-16.0); Mean Corpuscular HGB Conc 33 g/dL (31-36); Mean Corpuscular Hemoglobin 31 pg (27-31); Mean Corpuscular Volume 95 fL (80-97); Mean Platelet Volume 7.3 fL (7.4-10.4); Platelet Count 336 10^3/uL (150-450); Red Blood Count 3.64 10^6 /uL (3.70-4.87); Red Cell Distribution Width 14 % (10-15); White Blood Count 22.6 10^3/uL (3.5-10.8)
[2021-01-31 20:05] LABS: INR 1.34 (0.82-1.09)
[2021-01-31 20:18] LABS: ALT 20 U/L (7-52); AST 34 U/L (13-39); Albumin 2.9 g/dL (3.2-5.2); Albumin/Globulin Ratio 0.8 (1-3); Alcohol, S < 10 mg/dL (<10); Alkaline Phosphatase 94 U/L (34-104); Anion Gap 5 mmol/L (2-11); Blood Urea Nitrogen 18 mg/dL (6-24); CO2 Carbon Dioxide 23 mmol/L (22-32); Calcium 7.7 mg/dL (8.6-10.3); Chloride 104 mmol/L (101-111); EGFR African American 60.4 (>60); EGFR Non-African American 49.9 (>60); Globulin 3.6 g/dL (2-4); Glucose 125 mg/dL (70-100); Potassium 4.5 mmol/L (3.5-5.0); Sodium 132 mmol/L (135-145); Total Protein 6.5 g/dL (6.4-8.9)
[2021-01-31 20:25] LABS: ABS Lymphocytes 0.9 10^3/ul (1.0-4.8); ABS Monocytes 1.6 10^3/ul (0-0.8); ABS Neutrophils 20.1 10^3/ul (1.5-7.7); Eosinophil % 0.1 %; Lymphocyte % 3.9 %; Troponin I 0.05 ng/mL (<0.03)
[2021-01-31] MEDS ORDERED: NS 0.9% 1000 ml BAG 2,000 ML IV ONE (20:42)
[2021-01-31 21:10] LABS: Urine Appearance Clear; Urine Bilirubin Negative (Negative); Urine Blood 1+ (Negative); Urine Color Yellow; Urine Glucose Negative (Negative); Urine Ketones Negative (Negative); Urine Nitrite Negative (Negative); Urine Protein 2+(100 mg/dL) (Negative); Urine Specific Gravity 1.014 (1.002-1.030); Urine Urobilinogen Negative (Negative)
[2021-01-31 21:15] LABS: Urine Bacteria Absent (Absent); Urine Red Blood Cell 3+(>10/hpf) (Absent); Urine White Blood Cell Trace(0-5/hpf) (Absent)
[2021-01-31 21:36] LABS: Digoxin 2.1 ng/ml (0.8-2.0)
[2021-01-31] MEDS ORDERED: Iodixanol (CONTRAST) 320 MG/ML 100 ML SDV IV ONE (21:39)
[2021-01-31] MEDS ORDERED: cefTRIAXone 1 gm/50 mL NS BAG 1 GM/50 ML BAG IV ONE (21:40)
[2021-01-31 22:39] LABS: C Reactive Protein 255.41 mg/L (<8.01); Creatine Kinase 84 U/L (10-223)
[2021-01-31] MEDS ORDERED: Zosyn per Pharmacy NOTE FOLLOW UP SCH (23:45)
[2021-01-31] MEDS ORDERED: Enoxaparin 40 MG/0.4 ML SYR SUBCUT SCH (23:45)
[2021-01-31] MEDS ORDERED: Piperacillin/Tazobac ADVAN 3.375 GM in NS 0.9% 100 ml BAG 100 ML IV ONE (23:56)
[2021-01-31 23:58] LABS: Lipase < 10 U/L (11.0-82.0)
[2021-02-01] MEDS: NS 0.9% 1000 ml BAG 1,000 ML IV SCH ×2 (02:20→17:26)
[2021-02-01] MEDS: ZOSYN 3.375 GM Q8H per EXTENDED INFUSION IV SCH ×3 (06:45→22:02)
[2021-02-01 06:57] LABS: Troponin I 0.05 ng/mL (<0.03)
[2021-02-01] MEDS: oxyCODONE/Acetamin 5/325 mg TAB PO PRN ×3 (12:54→22:47)
[2021-02-01] MEDS: Lidocaine PATCH 5% PATCH TRANSDERM SCH (13:00)
[2021-02-01] MEDS ORDERED: Lactated Ringers 500 ml BAG 500 ML IV ONE (16:32)
[2021-02-01] MEDS: Lidocaine Patch REMOVE PATCH PATCH OFF SCH (22:49)
[2021-02-02] MEDS: NS 0.9% 1000 ml BAG 1,000 ML IV SCH ×2 (04:37→14:26)
[2021-02-02] MEDS: ZOSYN 3.375 GM Q8H per EXTENDED INFUSION IV SCH ×3 (06:05→23:19)
[2021-02-02] MEDS: Lidocaine PATCH 5% PATCH TRANSDERM SCH (09:11)
[2021-02-02] MEDS: oxyCODONE/Acetamin 5/325 mg TAB PO PRN (09:14)
[2021-02-02 09:27] LABS: Hematocrit 33 % (35-47); Hemoglobin 11.5 g/dL (12.0-16.0); Mean Corpuscular HGB Conc 35 g/dL (31-36); Mean Corpuscular Hemoglobin 32 pg (27-31); Mean Corpuscular Volume 93 fL (80-97); Mean Platelet Volume 7.2 fL (7.4-10.4); Platelet Count 321 10^3/uL (150-450); Red Blood Count 3.56 10^6 /uL (3.70-4.87); Red Cell Distribution Width 14 % (10-15); White Blood Count 10.6 10^3/uL (3.5-10.8)
[2021-02-02 09:50] LABS: Anion Gap 5 mmol/L (2-11); Blood Urea Nitrogen 15 mg/dL (6-24); CO2 Carbon Dioxide 19 mmol/L (22-32); Calcium 7.1 mg/dL (8.6-10.3); Chloride 110 mmol/L (101-111); EGFR African American 71.1 (>60); EGFR Non-African American 58.7 (>60); Glucose 137 mg/dL (70-100); Potassium 4.1 mmol/L (3.5-5.0); Sodium 134 mmol/L (135-145)
[2021-02-02 09:51] LABS: Troponin I 0.03 ng/mL (<0.03)
[2021-02-02 13:41] LABS: C Reactive Protein 199.13 mg/L (<8.01)
[2021-02-02] MEDS ORDERED: Al Hydrox/Mg Hydrox/Simet LIQ 30 ML UDC PO ONE (14:32)
[2021-02-02] MEDS: Lidocaine Patch REMOVE PATCH PATCH OFF SCH (20:10)
[2021-02-03 06:49] LABS: Hematocrit 32 % (35-47); Hemoglobin 10.8 g/dL (12.0-16.0); Mean Corpuscular HGB Conc 33 g/dL (31-36); Mean Corpuscular Hemoglobin 32 pg (27-31); Mean Corpuscular Volume 95 fL (80-97); Mean Platelet Volume 7.2 fL (7.4-10.4); Platelet Count 325 10^3/uL (150-450); Red Cell Distribution Width 14 % (10-15); White Blood Count 9.7 10^3/uL (3.5-10.8)
[2021-02-03 07:10] LABS: Calcium 6.8 mg/dL (8.6-10.3); EGFR African American 74.8 (>60); EGFR Non-African American 61.8 (>60)
[2021-02-03] MEDS: oxyCODONE/Acetamin 5/325 mg TAB PO PRN ×2 (07:47→17:34)
[2021-02-03] MEDS: ZOSYN 3.375 GM Q8H per EXTENDED INFUSION IV SCH ×3 (08:41→22:07)
[2021-02-03] MEDS: Lidocaine PATCH 5% PATCH TRANSDERM SCH (09:36)
[2021-02-03] MEDS ORDERED: Senna TAB 8.6 mg TAB PO PRN (15:06)
[2021-02-03] MEDS ORDERED: Enoxaparin 30 MG/0.3 ML SYR SUBCUT SCH (18:00)
[2021-02-03] MEDS: NS 0.9% 1000 ml BAG 1,000 ML IV SCH (19:56)
[2021-02-03] MEDS: Lidocaine Patch REMOVE PATCH PATCH OFF SCH (20:00)
[2021-02-04] MEDS: ZOSYN 3.375 GM Q8H per EXTENDED INFUSION IV SCH ×3 (05:45→22:49)
[2021-02-04 06:52] LABS: EGFR African American 82.3 (>60); Potassium 4.1 mmol/L (3.5-5.0)
[2021-02-04 06:53] LABS: Digoxin 0.8 ng/ml (0.8-2.0)
[2021-02-04 06:54] LABS: ABS Eosinophils 0.6 10^3/ul (0-0.6); ABS Lymphocytes 0.3 10^3/ul (1.0-4.8); ABS Monocytes 0.7 10^3/ul (0-0.8); Eosinophil % 5.8 %; Hematocrit 34 % (35-47); Hemoglobin 10.7 g/dL (12.0-16.0); Lymphocyte % 3.2 %; Mean Corpuscular HGB Conc 32 g/dL (31-36); Mean Corpuscular Hemoglobin 31 pg (27-31); Mean Corpuscular Volume 99 fL (80-97); Mean Platelet Volume 8.1 fL (7.4-10.4); Platelet Count 244 10^3/uL (150-450); Red Blood Count 3.42 10^6 /uL (3.70-4.87); Red Cell Distribution Width 15 % (10-15); White Blood Count 9.6 10^3/uL (3.5-10.8)
[2021-02-04 07:01] LABS: Calcium 6.4 mg/dL (8.6-10.3)
[2021-02-04] MEDS ORDERED: Calcium Gluconate 4 GM in NS 0.9% 250 ml 250 ML IV ONE (07:30)
[2021-02-04 07:51] LABS: Magnesium 1.8 mg/dL (1.9-2.7)
[2021-02-04] MEDS: Lidocaine PATCH 5% PATCH TRANSDERM SCH (08:22)
[2021-02-04] MEDS ORDERED: Magnesium Sulfate IV 3 GM in NS 0.9% 100 ml BAG 100 ML IVPB ONE (08:30)
[2021-02-04] MEDS ORDERED: Albuterol HFA INHALER 8 gm MDI INH PRN (15:37)
[2021-02-04 16:38] LABS: Calcium 7.5 mg/dL (8.6-10.3); EGFR Non-African American 66.1 (>60); Potassium 3.7 mmol/L (3.5-5.0)
[2021-02-04] MEDS: Lidocaine Patch REMOVE PATCH PATCH OFF SCH (20:30)
[2021-02-05] MEDS: ZOSYN 3.375 GM Q8H per EXTENDED INFUSION IV SCH ×3 (06:00→23:31)
[2021-02-05 08:20] LABS: Hematocrit 34 % (35-47); Mean Corpuscular HGB Conc 33 g/dL (31-36); Mean Corpuscular Hemoglobin 31 pg (27-31); Mean Corpuscular Volume 97 fL (80-97); Mean Platelet Volume 7.2 fL (7.4-10.4); Platelet Count 270 10^3/uL (150-450); Red Cell Distribution Width 15 % (10-15); White Blood Count 12.3 10^3/uL (3.5-10.8)
[2021-02-05 08:34] LABS: Blood Urea Nitrogen 7 mg/dL (6-24); CO2 Carbon Dioxide 15 mmol/L (22-32); Chloride 111 mmol/L (101-111); EGFR African American 82.3 (>60); Glucose 102 mg/dL (70-100); Sodium 133 mmol/L (135-145)
[2021-02-05] MEDS: Lidocaine PATCH 5% PATCH TRANSDERM SCH (09:56)
[2021-02-05 10:45] LABS: Anion Gap 7 mmol/L (2-11)
[2021-02-05 12:45] LABS: Potassium Redraw 3.8 mmol/L (3.5-5.0)
[2021-02-05 17:16] LABS: Phosphorus 1.5 mg/dL (2.5-5.0)
[2021-02-05 18:05] LABS: Magnesium 2.1 mg/dL (1.9-2.7)
[2021-02-05] MEDS ORDERED: Calcium Gluconate 4 GM in NS 0.9% 250 ml 250 ML IV ONE (18:30)
[2021-02-05] MEDS: Calcium Citrate 200 mg TAB PO SCH (20:46)
[2021-02-05] MEDS: Lidocaine Patch REMOVE PATCH PATCH OFF SCH (21:30)
[2021-02-05] MEDS ORDERED: Furosemide 20 mg/2 ml IV VIAL IV ONE (21:49)
[2021-02-05 22:10] LABS: C Reactive Protein 145.54 mg/L (<8.01)
[2021-02-06] MEDS: ZOSYN 3.375 GM Q8H per EXTENDED INFUSION IV SCH ×2 (06:17→14:45)
[2021-02-06 09:31] LABS: Albumin 2.1 g/dL (3.2-5.2); Albumin/Globulin Ratio 0.8 (1-3); Calcium 7.2 mg/dL (8.6-10.3); EGFR African American 92.8 (>60); EGFR Non-African American 76.7 (>60); Globulin 2.8 g/dL (2-4); Indirect Bilirubin 0.4 mg/dL (0.3-1.0); Magnesium 1.6 mg/dL (1.9-2.7); Potassium 3.4 mmol/L (3.5-5.0); Total Bilirubin 0.5 mg/dL (0.2-1.0); Total Protein 4.9 g/dL (6.4-8.9)
[2021-02-06] MEDS: Lidocaine PATCH 5% PATCH TRANSDERM SCH (10:38)
[2021-02-06] MEDS: Calcium Citrate 200 mg TAB PO SCH ×2 (10:43→20:57)
[2021-02-06 16:23] LABS: Body Fluid Source Pleural Fluid
[2021-02-06] MEDS ORDERED: diPHENhydraMINE IV 50 MG/ML 1 ml VIAL (BENADRYL) IV ONE (17:22)
[2021-02-06] MEDS ORDERED: Magnesium Sulf 4 GM/100 ML IV 4,000 MG/100 ML BAG IVPB ONE (17:30)
[2021-02-06] MEDS ORDERED: Lactated Ringers 500 ml BAG 500 ML IV ONE (17:37)
[2021-02-06 17:50] LABS: Body Fluid Mono 36 %; Body Fluid Other Cells 14
[2021-02-06] MEDS: cefTRIAXone 2 GM ADDV.VIAL 2 GM in NS 0.9% 100 ml BAG 100 ML IV SCH (18:20)
[2021-02-06] MEDS: Lidocaine Patch REMOVE PATCH PATCH OFF SCH (21:27)
[2021-02-07] MEDS ORDERED: diPHENhydraMINE 25 mg TAB PO ONE (05:30)
[2021-02-07 06:26] LABS: Calcium 7.3 mg/dL (8.6-10.3); Magnesium 2.6 mg/dL (1.9-2.7); Potassium 3.5 mmol/L (3.5-5.0)
[2021-02-07 06:31] LABS: C Reactive Protein 131.56 mg/L (<8.01); EGFR African American 91.4 (>60); EGFR Non-African American 75.5 (>60); Phosphorus 1.2 mg/dL (2.5-5.0)
[2021-02-07 07:59] LABS: ABS Lymphocytes 1.3 10^3/ul (1.0-4.8); ABS Monocytes 1.1 10^3/ul (0-0.8); Hematocrit 33 % (35-47); Lymphocyte % 6.9 %; Mean Corpuscular HGB Conc 33 g/dL (31-36); Mean Corpuscular Hemoglobin 31 pg (27-31); Mean Corpuscular Volume 92 fL (80-97); Mean Platelet Volume 7.1 fL (7.4-10.4); Platelet Count 351 10^3/uL (150-450); Red Blood Count 3.59 10^6 /uL (3.70-4.87); Red Cell Distribution Width 14 % (10-15); White Blood Count 19.5 10^3/uL (3.5-10.8)
[2021-02-07] MEDS: Calcium Citrate 200 mg TAB PO SCH ×2 (08:28→20:18)
[2021-02-07] MEDS: Lidocaine PATCH 5% PATCH TRANSDERM SCH (08:29)
[2021-02-07] MEDS ORDERED: Cholecalciferol (VIT D3) 50,000 UNIT CAP (NF) PO SCH (09:00)
[2021-02-07] MEDS: cefTRIAXone 2 GM ADDV.VIAL 2 GM in NS 0.9% 100 ml BAG 100 ML IV SCH (20:16)
[2021-02-07] MEDS: Lidocaine Patch REMOVE PATCH PATCH OFF SCH (20:19)
[2021-02-08 06:09] LABS: Hematocrit 30 % (35-47); Hemoglobin 10.1 g/dL (12.0-16.0); Mean Corpuscular HGB Conc 33 g/dL (31-36); Mean Corpuscular Hemoglobin 31 pg (27-31); Mean Corpuscular Volume 92 fL (80-97); Mean Platelet Volume 7.1 fL (7.4-10.4); Platelet Count 322 10^3/uL (150-450); Red Cell Distribution Width 15 % (10-15); White Blood Count 12.4 10^3/uL (3.5-10.8)
[2021-02-08 06:25] LABS: Calcium 7.3 mg/dL (8.6-10.3); EGFR African American 102.5 (>60); EGFR Non-African American 84.7 (>60)
[2021-02-08] MEDS ORDERED: Potassium Chlor 20 meq TAB.ER PO ONE (07:48)
[2021-02-08] MEDS: Calcium Citrate 200 mg TAB PO SCH ×2 (08:02→21:43)
[2021-02-08] MEDS: Lidocaine PATCH 5% PATCH TRANSDERM SCH (08:02)
[2021-02-08 15:35] LABS: Fluid Type, Glucose PLEURAL FLUID; Glucose, BF 102 mg/dL
[2021-02-08 15:38] LABS: Fluid Type, Albumin PLEURAL; Fluid Type, Protein, Total PLEURAL
[2021-02-08] MEDS: cefTRIAXone 2 GM ADDV.VIAL 2 GM in NS 0.9% 100 ml BAG 100 ML IV SCH (21:43)
[2021-02-08] MEDS: Lidocaine Patch REMOVE PATCH PATCH OFF SCH (22:06)
[2021-02-09] MEDS: Calcium Citrate 200 mg TAB PO SCH ×2 (10:26→21:46)
[2021-02-09] MEDS: Lidocaine PATCH 5% PATCH TRANSDERM SCH (10:26)
[2021-02-09 11:16] LABS: CO2 Carbon Dioxide 17 mmol/L (22-32); Calcium 7.2 mg/dL (8.6-10.3); Chloride 111 mmol/L (101-111); Sodium 135 mmol/L (135-145)
[2021-02-09 11:21] LABS: Blood Urea Nitrogen 5 mg/dL (6-24); EGFR African American 83.5 (>60); Glucose 126 mg/dL (70-100)
[2021-02-09 11:24] LABS: Anion Gap 7 mmol/L (2-11)
[2021-02-09] MEDS: oxyCODONE/Acetamin 5/325 mg TAB PO PRN ×2 (12:57→17:18)
[2021-02-09] MEDS: cefTRIAXone 2 GM ADDV.VIAL 2 GM in NS 0.9% 100 ml BAG 100 ML IV SCH (21:45)
[2021-02-09] MEDS: Lidocaine Patch REMOVE PATCH PATCH OFF SCH (21:53)
[2021-02-10 04:23] LABS: Potassium, Whole Blood 4.1 mmol/L (3.4-4.5)
[2021-02-10 04:24] LABS: Hematocrit 30 % (35-47); Hemoglobin 9.9 g/dL (12.0-16.0); Mean Corpuscular HGB Conc 33 g/dL (31-36); Mean Corpuscular Hemoglobin 31 pg (27-31); Mean Corpuscular Volume 92 fL (80-97); Mean Platelet Volume 7.1 fL (7.4-10.4); Platelet Count 353 10^3/uL (150-450); Red Blood Count 3.24 10^6 /uL (3.70-4.87); Red Cell Distribution Width 15 % (10-15); White Blood Count 8.8 10^3/uL (3.5-10.8)
[2021-02-10 04:39] LABS: Magnesium 1.8 mg/dL (1.9-2.7); Potassium Redraw 3.9 mmol/L (3.5-5.0)
[2021-02-10] MEDS ORDERED: Magnesium Sulfate IV 3 GM in NS 0.9% 100 ml BAG 100 ML IVPB ONE (07:30)
[2021-02-10] MEDS: Calcium Citrate 200 mg TAB PO SCH ×2 (08:41→20:38)
[2021-02-10] MEDS: Lidocaine PATCH 5% PATCH TRANSDERM SCH (08:42)
[2021-02-10] MEDS: oxyCODONE/Acetamin 5/325 mg TAB PO PRN ×2 (13:18→19:24)
[2021-02-10] MEDS: cefTRIAXone 2 GM ADDV.VIAL 2 GM in NS 0.9% 100 ml BAG 100 ML IV SCH (20:38)
[2021-02-10] MEDS: Lidocaine Patch REMOVE PATCH PATCH OFF SCH (20:42)
[2021-02-11] MEDS: oxyCODONE/Acetamin 5/325 mg TAB PO PRN ×3 (01:53→19:24)
[2021-02-11 06:06] LABS: Calcium 7.4 mg/dL (8.6-10.3); EGFR African American 99.1 (>60); EGFR Non-African American 81.9 (>60); Magnesium 2.2 mg/dL (1.9-2.7); Potassium 4.5 mmol/L (3.5-5.0)
[2021-02-11] MEDS: Lidocaine PATCH 5% PATCH TRANSDERM SCH (09:06)
[2021-02-11] MEDS: Calcium Citrate 200 mg TAB PO SCH ×2 (09:07→20:51)
[2021-02-11] MEDS: Lidocaine Patch REMOVE PATCH PATCH OFF SCH (20:53)
[2021-02-12] MEDS: Calcium Citrate 200 mg TAB PO SCH (08:43)
[2021-02-12] MEDS: Lidocaine PATCH 5% PATCH TRANSDERM SCH (08:43)
[2021-02-12 12:58] VITALS: BP 126/47
[2021-02-12 17:00] LABS: Anti SSA/RO Antibody 1.7 U
[2021-02-12 20:40] LABS: Cyclic Citrullinated Pept IgG <15.6 U
== END 2021-02-12 14:50 | DRG 871 ==
LOC: ED 19:21 → MED 23:08
PROVIDERS: ADMIT Internal Medicine; ATTEND Internal Medicine